=== PATIENT | male | born 1970 | race Caucasian/White ===

== ENCOUNTER 2018-07-10 10:40 | Inpatient (IN) | payer SELFPAY ==
[2018-07-10] VITALS (19 sets, daily range): BP systolic 95–125; BP diastolic 57–93; PULSE 74–125; RESP 12–32; TEMP 36.3–37; O2SAT 94–98; BMI 20.9; BMI 20.6
--- NOTE | 2018-07-10 11:04 | EKG12_ITS ---
Test Reason : SOB Blood Pressure : / mmHG Vent. Rate : 092 BPM Atrial Rate : 092 BPM P-R Int : 106 ms QRS Dur : 100 ms QT Int : 448 ms P-R-T Axes : 044 080 080 degrees QTc Int : 554 ms Sinus rhythm with short SD T wave abnormality, consider anterior ischemia Prolonged QT Abnormal ECG Confirmed by ELSA TERRAZAS, MENDEL ([id number]), makeup editor MITCH LINDO ([id number]) on 07/12/2018 11:03:34 AM Referred By: WON Confirmed By:MENDEL HUNTER MD
--- NOTE | 2018-07-10 11:04 | RAD_ITS ---
STUDY: X-RAY CHEST REASON FOR EXAM: Male, 47 years old. Shortness of breath TECHNIQUE: AP COMPARISON: 03/13/2016 FINDINGS: EKG leads project over the chest. The lungs are clear but hyper expanded. Nodular densities projecting over each mid lung field compatible with nipple shadows, similar. There is no demonstrated pleural abnormality. Normal size heart. Normal mediastinum and gena. Normal visualized pulmonary arteries. Normal visualized aortic arch and descending thoracic aorta. Normal visualized thoracic spine. Normal visualized ribs, clavicles, and shoulders. There is no demonstrated abnormality of the visualized soft tissue structures of the upper abdomen. RAD/Chest 1 View (Portable) IMPRESSION: 1. No airspace consolidation or pleural effusion. 2. Hyperinflation compatible with chronic obstructive airway disease. Electronically Signed: Darwin Christensen MD at 11:24 EDT , Service support ,
[2018-07-10] MEDS: Ipratropium/Albuterol Sulfate 3 ML AMPUL.NEB INHALATION ×2 (11:23→20:05)
--- NOTE | 2018-07-10 11:23 | ED.VISSUMM ---
- ER Visit Summary Date of Service: 07/10/18 Chief Complaint: Shortness of breath History of Present Illness: The patient is a 47 M who states that yesterday and evening he was drinking alcohol with the neighbor and had approximately 15 beers. He was feeling fine and went to bed. He woke in the middle the night coughing and short of breath with pain on his right back. States it hurts to take a breath he tells me he has a history of COPD but does not take any medications. He continues to smoke. Patient tells me that yesterday he felt fine and it was a pretty normal day. Tells me his back feels better when he brings his right leg up to his chest. No known trauma. Physical Examination: Blood pressure 110/81 heart rate of 125 respirations are 31 pulse ox 96% on room air temperature 97.8. Gen: Well-nourished well-developed strong smell of alcohol from patient patient is writhing on the bed Head: Normocephalic atraumatic Eyes: Perrl EOMI ENT: TMs clear no rhinorrhea moist mucous membranes Neck: Supple no lymphadenopathy no JVD nontender CVS: Regular rate tachycardic rhythm no murmurs normal S1-S2 Respiratory: Moderate respiratory distress. Bilateral expiratory wheeze. Right lower rhonchi. Chest nontender Abdomen: Soft nontender nondistended normal bowel sounds no masses Back: Nontender Extremity: Nontender no edema Skin: Normal color no rash Neuro: alert orientated ?3 CN II-XII intact normal strength sensation reflexes gait cerebellar Psych: Normal affect normal mood Test Results: White count is normal. CMP normal except for sodium of 130. Troponin is negative. Lactic acid elevated 4.3. EKG sinus at a rate of 92. Chest x-ray negative. CT Manisha of the chest no pulmonary embolism noted. Emergency Department Course and Treatment: I believe this episode is most likely due to aspiration during the middle the night. This is resulted in aspiration pneumonitis and flare of his COPD. He was given him aerosols morphine Solu-Medrol he is improving still has a lot of pain on the right side which I suspect is due to the strain from coughing and breathing. I think he would benefit from inpatient admission and further care. Impression: 1. Aspiration pneumonitis 2. COPD exacerbation 3. Chest wall strain This note was generated with [employer] dictation software. It may contain incorrect words, spelling, and punctuation that were not noted in review of the chart prior to signing ED Disposition - Plan for ED Patient: Referrals: Care Physician,No Primary [Primary Care Provider] -
[2018-07-10] MEDS: Ondansetron 4 MG/2 ML Vial IV (11:28)
[2018-07-10] MEDS: Morphine 4 MG/ML Syringe IV ×3 (11:28→17:44)
[2018-07-10] MEDS: 0.9% Normal Saline 1,000 ML 1000 ML IV (11:28)
[2018-07-10 11:35] LABS: Absolute Lymphocyte Count 2.07 X10^3/ul (0.83-4.51); Absolute Neutrophil Count 4.8 X10^3/uL (2.0-7.7); Basophil# 0.15 X10^3/uL; Basophil% 1.9 % (0-1); Eosinophil# 0.02 X10^3/uL; Eosinophils% 0.3 % (0-5); Hematocrit 42.7 % (40-54); Hemoglobin 15.3 g/dl (13.0-16.5); Lymphocyte # 2.07 X10^3/ul (4.0); Lymphocyte % 26.5 % (19-41); Mean Corp Hgb Conc 35.8 g/gl (32-36); Mean Corpuscular Hgb 31.1 pg (27.0-32.0); Mean Corpuscular Volume 86.8 fL (80-94); Mean Platelet Vol. 9.8 fl (6.2-12.0); Monocyte# 0.79 X10^3/uL; Monocyte% 10.1 % (0-10); Neutrophil # 4.78 X10^3/uL (2.7-7.7); Neutrophil % 61.2 % (47-70); Platelet Count 222 K/mm3 (150-450); RBC Distribution Width CV 13.7 % (11.6-14.6); RBC Distribution Width SD 42.6 fl (35.1-43.9); Red Blood Count 4.92 M/mm3 (4.6-6.2); White Blood Count 7.8 K/mm3 (4.4-11.0)
[2018-07-10 11:39] LABS: POSITIVE COUNT NO; POSITIVE DIFFERENTIAL NO; POSITIVE MORPHOLOGY NO
[2018-07-10 11:57] LABS: ALB/GLOB Ratio 1.1 RATIO (0.9-2.4); AST(SGOT) 34 U/L (15-37); Alanine Aminotransfer ALT/SGPT 29 U/L (16-61); Albumin, Serum 3.9 g/dL (3.2-5.0); Alkaline Phosphatase 82 U/L (45-117); Anion Gap 13 (5-15); BUN 4 mg/dL (7-18); Calcium,Total 8.5 mg/dL (8.5-10.1); Chloride 96 mmol/L (98-107); Creatinine, Serum 0.79 mg/dL (0.70-1.30); EST Glomerular Filtration Rate 110 mL/min (>60); Est Glom Filt Rate - Afr Amer 133 mL/min (>60); Estimated Creatinine Clearance 108.85 ml/min; Globulin 3.7 g/dL (2.2-4.2); Glucose 98 mg/dL (74-106); Lipase 102 U/L (73-393); Potassium 3.8 mmol/L (3.5-5.1); Protein, Total 7.6 g/dL (6.4-8.2); Sodium Level 130 mmol/L (136-145)
[2018-07-10 12:03] LABS: International Normalized Ratio 0.9; Partial Thromboplast Time 28.3 Seconds (24.1-36.2); Prothrombin Time (Protime)PT. 12.2 SECONDS (11.7-14.9)
[2018-07-10 12:06] LABS: Bacteria 0 SEEN /hpf (None Seen); Mucous, Urine 0 SEEN /hpf (<or=2+); Red Blood Cells-Urine 0 SEEN /hpf (0-5); Squamous Epithelial Cells - UA 0 SEEN /hpf (0-5); White Blood Cells 0 SEEN /hpf (0-5)
--- NOTE | 2018-07-10 12:07 | CT_ITS ---
STUDY: CTA CHEST REASON FOR EXAM: Male, 47 years old. Right lower chest pain RADIATION DOSAGE (If Supplied By Facility): CTDIvol = ( 5.67 ) mGy, DLP = ( 218.07 ) mGycm TECHNIQUE: The examination was performed with the intravenous administration of 100mL IV Isovue 300. Post-processing of the angiographic images was performed, with multiplanar reformation and 3D reconstruction. Individualized dose optimization techniques were used for this CT. COMPARISON: None. FINDINGS: Normal enhancement of the main pulmonary artery and right and left pulmonary arteries. Normal enhancement of the bilateral peripheral pulmonary arteries. Limited by motion artifact. There is no demonstrated pulmonary embolism. Normal thoracic aorta and visualized great vessels. There is no demonstrated aortic dissection. Normal heart and pericardium. Normal mediastinum. Normal hilar regions. Normal visualized trachea and bronchi. The lungs are hyper expanded, with flattening of the hemidiaphragms. There are paraseptal emphysematous blebs with mild bilateral pleural apical scarring. No airspace consolidation. There are calcified granulomata in the bilateral lower lobes. No pleural effusion. Normal chest wall structures. Normal osseous structures. There is diffuse fatty infiltration of the liver. CT/CTA Chest W/WO Contrast IMPRESSION: 1. No central or obvious segmental pulmonary embolism. Exam quality diminished by patient motion artifact. 2. Hyperinflation with mild paraseptal blebs. 3. Hepatic steatosis. Electronically Signed: Darwin Christensen MD at 12:46 EDT , Service support ,
[2018-07-10 12:08] LABS: Color, Urine Yellow (Yellow); Glucose, Dipstick Normal (Normal); Ketone-Dipstick Negative (Negative); Leukocyte Esterase-Dipstick 25 /ul (Negative); Nitrite-Dipstick Negative (Negative); Occult Blood-Urine Negative /ul (Negative); Protein-Dipstick Negative (Negative); Urine Bilirubin Dipstick Negative (Negative); Urine Clarity Clear (Clear); Urine Urobilinogen Normal (Normal)
[2018-07-10 12:11] LABS: Lactic Acid 4.3 mmol/L (0.4-2.0)
[2018-07-10] MEDS: Albuterol 2.5 MG/3 ML VIAL.NEB. INHALATION ×2 (12:40→13:02)
[2018-07-10] MEDS: 0.9% Normal Saline 1,000 ML 250 ML IV (12:44)
[2018-07-10] MEDS: Ketorolac 30 MG/ML Syringe IV (13:14)
[2018-07-10] MEDS: MethylPREDNISolone 125 MG/2 ML Vial IV (13:20)
--- NOTE | 2018-07-10 13:24 | HP.PCM_ITS ---
Problem List (1) Acute back pain Status: Acute Qualifiers: Back pain location: low back pain Back pain laterality: unspecified Sciatica laterality: bilateral sciatica (2) Hypoxia Status: Acute (3) Aspiration pneumonitis Status: Acute (4) COPD exacerbation Status: Chronic (5) Alcohol use disorder Status: Acute (6) Nicotine dependence Status: Acute Qualifiers: Substance use status: unspecified nicotine-induced disorder History of Present Illness Date of Admission: 07/10/18 Chief Complaint: Shortness of breath - 1day The patient is a 47 year old M with past medical history of chronic alcohol use disorder, nicotine use disorder, presumable COPD who comes in with complaints of upper respiratory symptoms ongoing for about 1 week and shortness of breath worsening on the day of admission. Patient reports that he had an upper respiratory symptoms for which she was taking DayQuil and NyQuil with no improvement in his symptoms. He came to the hospital today because he had progressive worsening of his shortness of breath. He admits to wheezing. He smokes more than 3 packs of cigarettes a day. He drinks more than 12 packs of beer a day. In addition to the shortness of breath, he complains of severe acute right-sided low back pain that is worse with ambulation, worse when he takes a deep breath. Pain is very severe, does not radiate down his legs. No associated incontinence of urine or stool. No tingling or numbness. Vitals in the emergency department show temperature of 97.8F, heart rate is 104, blood pressure was 110/81, respiratory rate was 32, SPO2 is 97% on room air. His admitting CBC D was unremarkable. INR PTT was also unremarkable. Sodium was 130, potassium 3.8, bicarbonate 21 BUN 4, creatinine 0.79. Lactic acid was elevated at 4.3. LFTs were normal. UA was unremarkable. EKG showed normal sinus rhythm, no acute ST changes. Admitting chest x-ray showed no airspace consolidation or pleural effusion. Showed hyperinflation compatible with chronic COPD. CT of the chest which was negative for PE. Showed hepatic steatosis. Past Medical History Past Medical History (Chronic Problems): Chronic Problems COPD exacerbation (Chronic) Allergies Penicillins [PCN] Allergy (Verified 07/10/18 10:45) Hives Home Medications: Ambulatory Orders Medication Instructions Recorded NK 07/10/18 Surgical History: no surgical history Psychiatric History: No pertinent psych hx Lives: Spouse/ Significant Other Smoking Status: Current every day smoker Tobacco Use: Cigarettes Alcohol: Heavy Drugs: None - *Family History Maternal History Items: Cancer - Leukemia Paternal History Items: Diabetes Review of Systems Constitutional: Reports: Weakness. Denies: Anorexia, Chills, Fever, Weight Change Eyes: Denies: Blurred vision, Cataracts, Conjunctivae Inflammation, Double vision HEENT: Denies: Difficulty Hearing, Difficulty Swallowing, Head Aches, Hearing Changes, Sinus Congestion, Sinus Drainage Cardiovascular: Denies: Chest Pain, Claudication, Orthopnea, Palpitations Respiratory: Reports: Shortness of breath at rest, Shortness of breath upon exertion, Wheezing. Denies: Cough, Hemoptysis, Sputum production Gastrointestinal: Denies: Abdominal Pain, Constipation, Hematemesis, Hematochezia, Nausea, Vomiting Genitourinary: Denies: Dysuria Musculoskeletal: Reports: - - Low back pain Skin: Denies: Rash, Wounds Neurological: Denies: Numbness, Tingling, Focal weakness Psychiatric: Denies: Anxiety, Depression, Homicidal Ideations, Suicidal Ideations Hematologic/ Lymphatic: Denies: Easy Bruising, Easy Bleeding VTE Information - Inpt Only VTE Present on Admission: No VTE Pharm Prophylaxis ordered?: Yes Patient Problems: Active and Suspected Problems Acute back pain (Acute) Hypoxia (Acute) Aspiration pneumonitis (Acute) Alcohol use disorder (Acute) Nicotine dependence (Acute) - Physical Exam General: Alert, Oriented x3, Cooperative, - - Severe pain with pain located in his back, not on oxygen HEENT: Atraumatic, PERRLA, EOMI, Normocephalic Oral: Moist Mucosa Neck: Supple, No JVD, Negative Carotid Bruits Lungs: Normal air movement, Diminished Cardiovascular: Regular rate, Regular Rhythm, Normal S1, Normal S2, No murmurs Abdomen: Bowel Sounds Present, Soft, Non Tender, Non-Distended, No Hepato- splenomegaly Extremities: No edema Skin: No rashes, No breakdown Musculoskeletal: No Tenderness to Palpation of Joints or Extremities Lymphatic: No Cervical, Supraclavicular, or Inguinal Adenopathy Neurological: Cranial nerves II-XII grossly intact, Neuro grossly intact Psych/Mental Status: Normal Affect, Appropriate Vital Signs Temp Pulse Resp BP Pulse Ox 98.5 F 94 21 H 115/78 95 07/10/18 13:00 07/10/18 13:04 07/10/18 13:04 07/10/18 13:00 07/10/18 13:00 Oxygen Flow Rate (L/min) 2 Oxygen Delivery Method Room Air Weight: 68.039 kg Body Mass Index (BMI) 20.9 Laboratory Tests Past 24 Hrs 07/10/18 07/10/18 07/10/18 11:21 11:21 11:21 WBC 7.8 RBC 4.92 Hgb 15.3 Hct 42.7 MCV 86.8 MCH 31.1 MCHC 35.8 RDW 13.7 RDW Differential 42.6 Plt Count 222 MPV 9.8 Immature Gran % (Auto) 0.000 Neut % (Auto) 61.2 Lymph % (Auto) 26.5 [place] % (Auto) 10.1 H Eos % (Auto) 0.3 Baso % (Auto) 1.9 H Absolute Neuts (auto) 4.8 Absolute Lymphs (auto) 2.07 Total Counted Not Reportable PT 12.2 INR 0.9 APTT 28.3 Sodium 130 L Potassium 3.8 Chloride 96 L Carbon Dioxide 21.0 Anion Gap 13 BUN 4 L Creatinine 0.79 Estim Creat Clear Calc 108.85 Est GFR (MDRD) Af Amer 133 Est GFR (MDRD) Non-Af 110 BUN/Creatinine Ratio 5.0 L Glucose 98 Lactic Acid Calcium 8.5 Total Bilirubin 0.30 AST 34 ALT 29 Alkaline Phosphatase 82 Troponin I < 0.015 Total Protein 7.6 Albumin 3.9 Globulin 3.7 Albumin/Globulin Ratio 1.1 Lipase 102 Urine Color Urine Clarity Urine pH Ur Specific [place] Urine Protein Urine Glucose (UA) Urine Ketones Urine Occult Blood Urine Nitrite Urine Bilirubin Urine Urobilinogen Ur Leukocyte Esterase Urine RBC Urine WBC Ur Squamous Epith Cells Urine Bacteria Urine Mucus 07/10/18 07/10/18 11:21 12:01 WBC RBC Hgb Hct MCV MCH MCHC RDW RDW Differential Plt Count MPV Immature Gran % (Auto) Neut % (Auto) Lymph % (Auto) [place] % (Auto) Eos % (Auto) Baso % (Auto) Absolute Neuts (auto) Absolute Lymphs (auto) Total Counted PT INR APTT Sodium Potassium Chloride Carbon Dioxide Anion Gap BUN Creatinine Estim Creat Clear Calc Est GFR (MDRD) Af Amer Est GFR (MDRD) Non-Af BUN/Creatinine Ratio Glucose Lactic Acid 4.3 H* Calcium Total Bilirubin AST ALT Alkaline Phosphatase Troponin I Total Protein Albumin Globulin Albumin/Globulin Ratio Lipase Urine Color Yellow Urine Clarity Clear Urine pH 7.0 Ur Specific [place] 1.010 Urine Protein Negative Urine Glucose (UA) Normal Urine Ketones Negative Urine Occult Blood Negative Urine Nitrite Negative Urine Bilirubin Negative Urine Urobilinogen Normal Ur Leukocyte Esterase 25 H Urine RBC 0 SEEN Urine WBC 0 SEEN Ur Squamous Epith Cells 0 SEEN Urine Bacteria 0 SEEN Urine Mucus 0 SEEN Assessment/Plan All Active Problems Acute back pain (Acute) Hypoxia (Acute) Aspiration pneumonitis (Acute) Alcohol use disorder (Acute) Nicotine dependence (Acute) 47 year old M with past medical history of chronic alcohol use disorder, nicotine use disorder, presumable COPD who comes in with complaints of upper respiratory symptoms ongoing for about 1 week and shortness of breath worsening on the day of admission. He also complained of 1 day history of severe low back pain. Patient was found to be hypoxic, improved with breathing treatments. 1. Acute low back pain, likely musculoskeletal, worsening with cough spots, lumbar spine x-rays pending, pain appears uncontrolled Plan: Admit for pain control, IV Toradol, Tylenol scheduled, would avoid use of narcotics, may use Lidoderm patches if needed, PT and OT to evaluate and treat 2. Acute respiratory insufficiency likely secondary to acute COPD exacerbation, aspiration pneumonitis, patient was off oxygen at the time of admission Initially was on 2 L of oxygen in the emergency department, continue on breathing treatments, IV steroids, we will not start on antibiotics 3. Acute COPD exacerbation, no wheezes at time of exam, received breathing treatment early on in the emergency department, will get respiratory panel, continue with IV steroids and breathing treatment 4. Nicotine use disorder, will put on replacement 5. Chronic nicotine use disorder, heavy, patient admits to no history of withdrawals, he says he can go for days without alcohol Will put on alcohol withdrawal protocol. 6. Hyponatremia secondary to dehydration/alcohol use, trend labs in a.m. 7. DVT prophylaxis with early ambulation Code Visit Inpatient E&M: 31407 Init Hosp L3
--- NOTE | 2018-07-10 13:43 | RAD_ITS ---
STUDY: X-RAY - LUMBAR SPINE REASON FOR EXAM: Male, 47 years old. Severe low back pain TECHNIQUE: 2 view(s) of the lumbar spine were obtained. COMPARISON: None FINDINGS: Normal lumbar lordosis. There is no substantial scoliosis. There is a normal alignment of the vertebrae. There is multilevel endplate spondylosis of the lumbar vertebrae. Mild disc space narrowing at L5-S1 and L4-L5. There is no demonstrated fracture. There is gaseous distention of small bowel and colon. RAD/Lumbar Spine 2 or 3 Views IMPRESSION: 1. No compression fracture. 2. Gaseous distention of the small bowel and colon but no frankly dilated loops of small bowel. 3. Mild degenerative changes. Electronically Signed: Darwin Christensen MD at 14:26 EDT , Service support ,
[2018-07-10] MEDS: LORazepam 1 MG Tablet 2 MG PO (15:20)
[2018-07-10] MEDS: Acetaminophen 500 MG Tablet 1000 MG PO ×2 (15:20→22:47)
[2018-07-10 15:29] LABS: Reflex Lactate? Y
[2018-07-10 16:31] LABS: Lactic Acid 5.3 mmol/L (0.4-2.0)
[2018-07-10] MEDS: 0.9% NaCl Peripheral Flush Adult/Peds IV ×2 (17:15→17:44)
[2018-07-10] MEDS: LORazepam 2 MG/ML Syringe IV (17:15)
[2018-07-10] MEDS: proCHLORPERazine 10 MG/2 ML Vial 5 MG IV (17:44)
[2018-07-10] MEDS: 0.9% Normal Saline 1,000 ML 75 ML IV (17:44)
--- NOTE | 2018-07-10 17:55 | NURSING ---
PT POINTING OUT TOWARDS WINDOW STATES 'LOOK AT THAT MODESTO OVER THERE. INQUIRED TO WHAT PT IS SEEING PT REPORTS THERE IS A MODESTO OVER THERE STANDING ON THAT CLOUD. SEE THE COLOR COMING DOWN OUT OF IT. PT UNABLE TO DESCRIBE COLOR OF WHAT HE SEES IS COMING DOWN FROM THE CLOUD. INQUIRED IF PT THINKS THE MAN STANDING ON THE CLOUD IS REAL. PT STARTS TO LAUGH AND SAYS 'I DON'T KNOW, NO I GUESS NOT. IF I KEEP THIS UP, THEY ARE GOING TO MOVE ME TO THE TOP FLOOR TO THE CRA[place]Y [place]. ENCOURAGED PT TO REPORT ANY FURTHER UNUSUAL VISUAL IMAGES. SPOUSE AT BEDSIDE WITH PT WELL DURING THIS TIME.
[2018-07-10] MEDS: traZODone 50 MG Tablet PO (22:47)
[2018-07-11 02:00] VITALS: PULSE 91
[2018-07-11] MEDS: Ketorolac 30 MG/ML Syringe IV (02:58)
[2018-07-11 03:00] VITALS: BP 116/69; PULSE 87; RESP 16; TEMP 36.6; O2SAT 94
[2018-07-11 06:08] LABS: Anion Gap 6 (5-15); BUN 7 mg/dL (7-18); BUN/Creat Ratio 10.4 RATIO (10-20); Calcium,Total 8.2 mg/dL (8.5-10.1); Chloride 106 mmol/L (98-107); Creatinine, Serum 0.68 mg/dL (0.70-1.30); EST Glomerular Filtration Rate 133 mL/min (>60); Est Glom Filt Rate - Afr Amer 160 mL/min (>60); Estimated Creatinine Clearance 124.53 ml/min; Glucose 193 mg/dL (74-106); Sodium Level 138 mmol/L (136-145)
[2018-07-11] MEDS: Acetaminophen 500 MG Tablet 1000 MG PO (06:17)
[2018-07-11 06:22] LABS: Absolute Lymphocyte Count 0.33 X10^3/ul (0.83-4.51); Absolute Neutrophil Count 7.2 X10^3/uL (2.0-7.7); Hematocrit 38.2 % (40-54); Hemoglobin 13.3 g/dl (13.0-16.5); Lymphocyte # 0.33 X10^3/ul (4.0); Lymphocyte % 4.3 % (19-41); Mean Corp Hgb Conc 34.8 g/gl (32-36); Mean Corpuscular Hgb 31.4 pg (27.0-32.0); Mean Corpuscular Volume 90.1 fL (80-94); Mean Platelet Vol. 10.7 fl (6.2-12.0); Monocyte# 0.19 X10^3/uL; Monocyte% 2.5 % (0-10); Neutrophil # 7.19 X10^3/uL (2.7-7.7); Neutrophil % 93.1 % (47-70); Platelet Count 188 K/mm3 (150-450); RBC Distribution Width CV 14.1 % (11.6-14.6); RBC Distribution Width SD 45.1 fl (35.1-43.9); Red Blood Count 4.24 M/mm3 (4.6-6.2); White Blood Count 7.7 K/mm3 (4.4-11.0)
[2018-07-11 06:23] LABS: Differential Indicated SCAN CRITERIA MET; POSITIVE COUNT NO; POSITIVE DIFFERENTIAL YES; POSITIVE MORPHOLOGY NO
[2018-07-11] MEDS: Ipratropium/Albuterol Sulfate 3 ML AMPUL.NEB INHALATION (07:41)
[2018-07-11 07:42] VITALS: PULSE 88; RESP 16; O2SAT 94
[2018-07-11] MEDS: Folic Acid 1 MG Tablet PO (07:57)
[2018-07-11] MEDS: Multivitamins,Ther W-Minerals Tablet 1 TABLET PO (07:57)
[2018-07-11] MEDS: Thiamine Hydrochloride 100 MG Tablet PO (07:57)
[2018-07-11] MEDS: Lidocaine 5% Patch 1 PATCH TOPICAL (07:58)
[2018-07-11 08:05] LABS: Lactic Acid 1.2 mmol/L (0.4-2.0)
--- NOTE | 2018-07-11 09:25 | PCM.DC ---
- Discharge Diagnoses Current Active Problems: Current Active and Chronic Problems Acute back pain (Acute) Hypoxia (Acute) Aspiration pneumonitis (Acute) COPD exacerbation (Chronic) Alcohol use disorder (Acute) Nicotine dependence (Acute) Reason(s) for Visit for Discharge Instructions: Fever, shortness of breath You will use the following diet at home:: Regular Your food should be the consistency of: Regular Your liquids should be the consistency of: Regular/Thin Discharge Activity: Return to Normal Activity Weight Bearing Status: Weight bearing as tolerated Additional Instructions: Continue to use your inhaler as needed for SOB. Continue to use tylenol, ibuprofen, lidoderm patches, topical medications such as Bengay, massages for your right low back pain as discussed with you. Follow up with gift packer for lung function testing. Allergies/Adverse Reactions: Allergies Penicillins [PCN] Allergy (Verified 07/10/18 10:45) Hives Medications to take at Discharge Acetaminophen [Tylenol] 1,000 mg PO Q8 tablet 07/11/18 Ipratropium/Albuterol Respimat [Combivent Respimat Inhal [place]] 1 puff INHALATION 4X/DAY PRN #1 inhaler 07/11/18 Lidocaine [Lidoderm Patch] 1 patch TOPICAL DAILY #10 patch 07/11/18 Nicotine [Nicoderm Cq] 21 mg TRANSDERM. DAILY #30 patch 07/11/18 Prednisone 10 mg PO DAILY #30 tab 07/11/18 The following prescriptions were given: Lidocaine [Lidoderm Patch] 1 patch TOPICAL DAILY #10 patch Nicotine [Nicoderm Cq] 21 mg TRANSDERM. DAILY #30 patch Prednisone 10 mg PO DAILY #30 tab Ipratropium/Albuterol Respimat [Combivent Respimat Inhal Lizella] 1 puff INHALATION 4X/DAY PRN #1 inhaler PRN Reason: Sob &/Or Wheezing Primary Care Physician: Care Physician,No Primary [Primary Care Provider] - Please follow up with your Primary Care Physician in: within 1-2 weeks Test Results: Test results from this visit will be discussed in further detail at your follow-up appointment, if applicable. Please Follow Up With: Dipak De Leon MD When: within 2-4 weeks for lung function testing Proposed Discharge Date: 07/11/18
[2018-07-11 09:26] VITALS: BP 130/65; PULSE 103; RESP 18; TEMP 36.5; O2SAT 98
--- NOTE | 2018-07-11 09:29 | DCINST_ITS ---
- Discharge Diagnoses Current Active Problems: Current Active and Chronic Problems Acute back pain (Acute) Hypoxia (Acute) Aspiration pneumonitis (Acute) COPD exacerbation (Chronic) Alcohol use disorder (Acute) Nicotine dependence (Acute) Reason(s) for Visit for Discharge Instructions: Fever, shortness of breath You will use the following diet at home:: Regular Your food should be the consistency of: Regular Your liquids should be the consistency of: Regular/Thin Discharge Activity: Return to Normal Activity Weight Bearing Status: Weight bearing as tolerated Additional Instructions: Continue to use your inhaler as needed for SOB. Continue to use tylenol, ibuprofen, lidoderm patches, topical medications such as Bengay, massages for your right low back pain as discussed with you. Follow up with apprentice technician for lung function testing. Allergies/Adverse Reactions: Allergies Penicillins [PCN] Allergy (Verified 07/10/18 10:45) Hives Medications to take at Discharge Acetaminophen [Tylenol] 1,000 mg PO Q8 tablet 07/11/18 Ipratropium/Albuterol Respimat [Combivent Respimat Inhal [place]] 1 puff INHALATION 4X/DAY PRN #1 inhaler 07/11/18 Lidocaine [Lidoderm Patch] 1 patch TOPICAL DAILY #10 patch 07/11/18 Nicotine [Nicoderm Cq] 21 mg TRANSDERM. DAILY #30 patch 07/11/18 Prednisone 10 mg PO DAILY #30 tab 07/11/18 The following prescriptions were given: Lidocaine [Lidoderm Patch] 1 patch TOPICAL DAILY #10 patch Nicotine [Nicoderm Cq] 21 mg TRANSDERM. DAILY #30 patch Prednisone 10 mg PO DAILY #30 tab Ipratropium/Albuterol Respimat [Combivent Respimat Inhal [place]] 1 puff INHALATION 4X/DAY PRN #1 inhaler PRN Reason: Sob &/Or Wheezing Primary Care Physician: Care Physician,No Primary [Primary Care Provider] - Please follow up with your Primary Care Physician in: within 1-2 weeks Test Results: Test results from this visit will be discussed in further detail at your follow- up appointment, if applicable. Please Follow Up With: Dipak De Leon MD When: within 2-4 weeks for lung function testing Proposed Discharge Date: 07/11/18
--- NOTE | 2018-07-11 09:30 | DS.PCM_ITS ---
Discharge Date and Diagnosis Date of Admission: 07/10/18 Date of Discharge: 07/11/18 - Primary Discharge Diagnosis Active and Suspected Problems Acute back pain (Acute) Hypoxia (Acute) Aspiration pneumonitis (Acute) Alcohol use disorder (Acute) Nicotine dependence (Acute) Elevated lactic acid, POA - Secondary Discharge Diagnosis Chronic Problems COPD exacerbation (Chronic) Hospital Course and Treatment Imaging Results: Clinical Impression(s) from Imaging Studies Chest X-Ray 07/10/18 11:04 IMPRESSION: 1. No airspace consolidation or pleural effusion. 2. Hyperinflation compatible with chronic obstructive airway disease. Electronically Signed: Darwin Christensen MD at 11:24 EDT , Service support , Chest CTA 07/10/18 12:07 IMPRESSION: 1. No central or obvious segmental pulmonary embolism. Exam quality diminished by patient motion artifact. 2. Hyperinflation with mild paraseptal blebs. 3. Hepatic steatosis. Electronically Signed: Darwin Christensen MD at 12:46 EDT , Service support , Lumbar Spine X-Ray 07/10/18 13:43 IMPRESSION: 1. No compression fracture. 2. Gaseous distention of the small bowel and colon but no frankly dilated loops of small bowel. 3. Mild degenerative changes. Electronically Signed: Darwin Christensen MD at 14:26 EDT , Service support , None Operations: None Procedures: None Summary of Care Provided: 47 year old M with past medical history of chronic alcohol use disorder, nicotine use disorder, presumable COPD who comes in with complaints of upper respiratory symptoms ongoing for about 1 week and shortness of breath worsening on the day of admission. He also complained of 1 day history of severe low back pain. Patient was found to be hypoxic, improved with breathing treatments. Patient is admitting chest x-ray was negative for any acute abnormality. Respiratory panel was negative. Patient had severe low back pain. X-ray of the lumbar spine was negative for any acute finding. Minimal degenerative changes seen. Patient was managed symptomatically on the medical floor. He was found to have elevated lac tic acid of 4.6, this was likely secondary to hypoxia, this trended up to 5.3 and normal the next day. There was no signs of sepsis. Patient improved at the time of admission, was off oxygen, he continued to remain off oxygen. He did not qualify for home oxygen. He was advised to stop smoking and drinking. He was discharged home home on a prednisone taper, Combivent, scheduled Tylenol, ibuprofen as needed, Lidoderm patches, and asked to manage backpain conservatively. Follow-up with warehouse order selector in 2-4 weeks, primary care doctor also within 1-2 weeks Subjective: On the day of discharge, patient appears much improved, noting pain. Denied any fever or chills. Objective: Physical Exam General: Alert, Oriented x3, Cooperative, - - Severe pain with pain located in his back, not on oxygen HEENT: Atraumatic, PERRLA, EOMI, Normocephalic Oral: Moist Mucosa Neck: Supple, No JVD, Negative Carotid Bruits Lungs: Normal air movement, Diminished Cardiovascular: Regular rate, Regular Rhythm, Normal S1, Normal S2, No murmurs Abdomen: Bowel Sounds Present, Soft, Non Tender, Non-Distended, No Hepato- splenomegaly Extremities: No edema Skin: No rashes, No breakdown Musculoskeletal: No Tenderness to Palpation of Joints or Extremities Lymphatic: No Cervical, Supraclavicular, or Inguinal Adenopathy Neurological: Cranial nerves II-XII grossly intact, Neuro grossly intact Psych/Mental Status: Normal Affect, Appropriate - Physical Exam Vital Signs Temp Pulse Resp BP Pulse Ox 97.7 F L 103 H 18 130/65 H 98 07/11/18 09:26 07/11/18 09:26 07/11/18 09:26 07/11/18 09:26 07/11/18 09:26 Oxygen Flow Rate (L/min) 2 Oxygen Delivery Method Room Air Weight: 67 kg Body Mass Index (BMI) 20.6 Intake and Output for Last 24 Hours 07/09/18 07/10/18 07/11/18 23:59 23:59 23:59 Intake Total 240 / 240 1509 / 1509 Output Total 400 / 400 400 / 400 Balance -160 / -160 1109 / 1109 Microbiology Past 72 Hours 07/10/18 14:50 Respiratory Panel (PCR) - Final Mucosa - Nasopharyngeal Laboratory Tests Past 24 Hrs 07/10/18 07/10/18 07/10/18 11:21 11:21 11:21 WBC 7.8 RBC 4.92 Hgb 15.3 Hct 42.7 MCV 86.8 MCH 31.1 MCHC 35.8 RDW 13.7 RDW Differential 42.6 Plt Count 222 MPV 9.8 Immature Gran % (Auto) 0.000 Neut % (Auto) 61.2 Lymph % (Auto) 26.5 Long % (Auto) 10.1 H Eos % (Auto) 0.3 Baso % (Auto) 1.9 H Absolute Neuts (auto) 4.8 Absolute Lymphs (auto) 2.07 Total Counted Not Reportable Differential Comment PT 12.2 INR 0.9 APTT 28.3 Sodium 130 L Potassium 3.8 Chloride 96 L Carbon Dioxide 21.0 Anion Gap 13 BUN 4 L Creatinine 0.79 Estim Creat Clear Calc 108.85 Est GFR (MDRD) Af Amer 133 Est GFR (MDRD) Non-Af 110 BUN/Creatinine Ratio 5.0 L Glucose 98 Lactic Acid Calcium 8.5 Total Bilirubin 0.30 AST 34 ALT 29 Alkaline Phosphatase 82 Troponin I < 0.015 Total Protein 7.6 Albumin 3.9 Globulin 3.7 Albumin/Globulin Ratio 1.1 Lipase 102 Urine Color Urine Clarity Urine pH Ur Specific [place] Urine Protein Urine Glucose (UA) Urine Ketones Urine Occult Blood Urine Nitrite Urine Bilirubin Urine Urobilinogen Ur Leukocyte Esterase Urine RBC Urine WBC Ur Squamous Epith Cells Urine Bacteria Urine Mucus Ethyl Alcohol 07/10/18 07/10/18 07/10/18 11:21 11:21 12:01 WBC RBC Hgb Hct MCV MCH MCHC RDW RDW Differential Plt Count MPV Immature Gran % (Auto) Neut % (Auto) Lymph % (Auto) Long % (Auto) Eos % (Auto) Baso % (Auto) Absolute Neuts (auto) Absolute Lymphs (auto) Total Counted Differential Comment PT INR APTT Sodium Potassium Chloride Carbon Dioxide Anion Gap BUN Creatinine Estim Creat Clear Calc Est GFR (MDRD) Af Amer Est GFR (MDRD) Non-Af BUN/Creatinine Ratio Glucose Lactic Acid 4.3 H* Calcium Total Bilirubin AST ALT Alkaline Phosphatase Troponin I Total Protein Albumin Globulin Albumin/Globulin Ratio Lipase Urine Color Yellow Urine Clarity Clear Urine pH 7.0 Ur Specific [place] 1.010 Urine Protein Negative Urine Glucose (UA) Normal Urine Ketones Negative Urine Occult Blood Negative Urine Nitrite Negative Urine Bilirubin Negative Urine Urobilinogen Normal Ur Leukocyte Esterase 25 H Urine RBC 0 SEEN Urine WBC 0 SEEN Ur Squamous Epith Cells 0 SEEN Urine Bacteria 0 SEEN Urine Mucus 0 SEEN Ethyl Alcohol 167.0 07/10/18 07/11/18 07/11/18 15:50 05:30 05:30 WBC 7.7 RBC 4.24 L Hgb 13.3 Hct 38.2 L MCV 90.1 MCH 31.4 MCHC 34.8 RDW 14.1 RDW Differential 45.1 H Plt Count 188 MPV 10.7 Immature Gran % (Auto) 0.100 Neut % (Auto) 93.1 H Lymph % (Auto) 4.3 L Long % (Auto) 2.5 Eos % (Auto) 0.0 Baso % (Auto) 0.0 Absolute Neuts (auto) 7.2 Absolute Lymphs (auto) 0.33 L Total Counted Not Reportable Differential Comment PT INR APTT Sodium 138 Potassium 4.0 Chloride 106 Carbon Dioxide 26.0 Anion Gap 6 BUN 7 Creatinine 0.68 L Estim Creat Clear Calc 124.53 Est GFR (MDRD) Af Amer 160 Est GFR (MDRD) Non-Af 133 BUN/Creatinine Ratio 10.4 Glucose 193 H Lactic Acid 5.3 H* Calcium 8.2 L Total Bilirubin AST ALT Alkaline Phosphatase Troponin I Total Protein Albumin Globulin Albumin/Globulin Ratio Lipase Urine Color Urine Clarity Urine pH Ur Specific [place] Urine Protein Urine Glucose (UA) Urine Ketones Urine Occult Blood Urine Nitrite Urine Bilirubin Urine Urobilinogen Ur Leukocyte Esterase Urine RBC Urine WBC Ur Squamous Epith Cells Urine Bacteria Urine Mucus Ethyl Alcohol 07/11/18 07:28 WBC RBC Hgb Hct MCV MCH MCHC RDW RDW Differential Plt Count MPV Immature Gran % (Auto) Neut % (Auto) Lymph % (Auto) Long % (Auto) Eos % (Auto) Baso % (Auto) Absolute Neuts (auto) Absolute Lymphs (auto) Total Counted Differential Comment PT INR APTT Sodium Potassium Chloride Carbon Dioxide Anion Gap BUN Creatinine Estim Creat Clear Calc Est GFR (MDRD) Af Amer Est GFR (MDRD) Non-Af BUN/Creatinine Ratio Glucose Lactic Acid 1.2 Calcium Total Bilirubin AST ALT Alkaline Phosphatase Troponin I Total Protein Albumin Globulin Albumin/Globulin Ratio Lipase Urine Color Urine Clarity Urine pH Ur Specific [place] Urine Protein Urine Glucose (UA) Urine Ketones Urine Occult Blood Urine Nitrite Urine Bilirubin Urine Urobilinogen Ur Leukocyte Esterase Urine RBC Urine WBC Ur Squamous Epith Cells Urine Bacteria Urine Mucus Ethyl Alcohol Discharge Diet: Low fat/ Low Cholesterol, 2000 mg Sodium Diet Discharge Activity: Return to Normal Activity Weight Bearing Status: Weight bearing as tolerated Home Medications: Medications to take at Discharge Acetaminophen [Tylenol] 1,000 mg PO Q8 tablet 07/11/18 Ipratropium/Albuterol Respimat [Combivent Respimat Inhal [place]] 1 puff INHALATION 4X/DAY PRN #1 inhaler 07/11/18 Lidocaine [Lidoderm Patch] 1 patch TOPICAL DAILY #10 patch 07/11/18 Nicotine [Nicoderm Cq] 21 mg TRANSDERM. DAILY #30 patch 07/11/18 Prednisone 10 mg PO DAILY #30 tab 07/11/18 Following Prescrptions Were Given to Patient: Lidocaine [Lidoderm Patch] 1 patch TOPICAL DAILY #10 patch Nicotine [Nicoderm Cq] 21 mg TRANSDERM. DAILY #30 patch Prednisone 10 mg PO DAILY #30 tab Ipratropium/Albuterol Respimat [Combivent Respimat Inhal [place]] 1 puff INHALATION 4X/DAY PRN #1 inhaler PRN Reason: Sob &/Or Wheezing Primary Care Physician: Care Physician,No Primary [Primary Care Provider] - Please follow up with your Primary Care Physician in: within 1-2 weeks Please Follow Up With: Dipak De Leon MD When: within 2-4 weeks for lung function testing Disposition: Home Minutes spent on discharge:: 40 Patient Condition:: Stable Medical Necessity - Tobacco Use Smoking Status: Current every day smoker Tobacco Use: Cigarettes Meaningful Use Info Meaningful Use Diagnoses (Choose all that apply): None applicable Code Visit Inpatient E&M: 60714 Disch Hosp
--- NOTE | 2018-07-11 09:32 | PCA ---
Doctor Beaza wants dental secretary on Wednesday 07/12 to schedule an appointment for doctor Moises Quesada for 2 to 4 weeks and call him with the appointment time
[2018-07-11 09:34] VITALS: PULSE 88; O2SAT 97; O2SAT 98
== END 2018-07-11 10:41 | disposition home or self-care (01) | DRG 178 ==
LOC: ED 11:50 → MS3 13:38
PROVIDERS: Hospitalist; Admitting Provider Internal Medicine; Emergency Provider Emergency Medicine; Visit Provider Internal Medicine
DX: J69.0 Pneumonitis due to inhalation of food and vomit (principal); E87.1 Hypo-osmolality and hyponatremia; J44.1 Chronic obstructive pulmonary disease with (acute) exacerbation; E86.0 Dehydration; M54.5 Low back pain; F17.210 Nicotine dependence, cigarettes, uncomplicated; R09.02 Hypoxemia; Z72.89 Other problems related to lifestyle
CPT/HCPCS: 36415; 71045; 71275; 72100; 80048; 80053; 80320; 81001; 83605; 83690; 84484; 85025; 85610; 85730; 87040; 87633; 93005; 94640; 99284; 99406; J7030; Q9967; A4216; G0480; J2405

== ENCOUNTER 2018-07-12 14:26 | Emergency (ER) | payer SELFPAY ==
[2018-07-10 14:48] VITALS: BMI 20.6
[2018-07-12 14:29] VITALS: BP 137/86; PULSE 73; RESP 17; TEMP 36.7; O2SAT 96; BMI 21.7
--- NOTE | 2018-07-12 15:07 | RAD_ITS ---
STUDY: X-RAY CHEST REASON FOR EXAM: Male, 47 years old. Cough and shortness of breath. Chest pain. TECHNIQUE: PA and lateral views of the chest. COMPARISON: Comparison is made with prior study dated July 10, 2018. FINDINGS: EKG electrodes are seen. Hyperinflation. The lungs are clear. There is no demonstrated pleural abnormality. Normal size heart. Normal mediastinum and gena. Normal visualized pulmonary arteries. Normal visualized aortic arch and descending thoracic aorta. Normal visualized thoracic spine. Normal visualized ribs, clavicles, and shoulders. There is no demonstrated abnormality of the visualized soft tissue structures of the upper abdomen. RAD/Chest PA and Lateral IMPRESSION: Hyperinflation. Electronically Signed: Patrick Zabala, at 15:36 EDT , Service support ,
--- NOTE | 2018-07-12 15:24 | ED.DCSUM_ITS ---
- ER Visit Summary Date of Service: 07/12/18 Chief Complaint: Cough and right-sided back pain History of Present Illness: The patient is a 47 M with no primary care physician. He reports that he was admitted to the hospital 2 days ago after an episode of aspiration. He reports that he continues to have a cough is productive of white sputum without blood. He denies any fever or chills. Reports that he has been wheezing and is on Combivent. He states that he has a severe pain in the right mid back each time he coughs. Physical Examination: Vitals: Stable. Afebrile. General: Well-nourished and well-developed. Head: Normocephalic atraumatic. Neck: Supple, no lymphadenopathy. No JVD. Nontender. Cardiovascular: Regular rate and rhythm. No murmurs. Respiratory: No respiratory distress. Clear to auscultation bilaterally. Abdominal: Soft, nontender, nondistended, normal bowel sounds. No guarding, rebound, or peritoneal signs. Back: Moderate tenderness palpation over the right lower thoracic paraspinous musculature. No vertebral tenderness.. Extremities: Nontender, no edema. Skin: Normal color, no rash. Neurologic: Alert and oriented ?3. Cranial nerves II through XII are intact. Normal strength and sensation. Psych: Normal affect. Test Results: Chest x-ray shows chronic changes. Emergency Department Course and Treatment: An [facility] report was obtained which was negative. Patient is given a dose of Ragland here. Treatment Plan: Patient be discharged prescription for 10 Ragland. Instructed to follow-up with Dr. Reyes in 1 week if not improving. Return to the emergency department for any worsening symptoms. Disposition: To home in improved and stable condition. Impression: 1. COPD. 2. Muscular back pain. This note was generated with [employer] software. It may contain incorrect words, spelling, and punctuation that were not noted in review of the chart prior to signing ED Disposition - Plan for ED Patient: Disposition: Home or Assisted Living Instructions: ED COPD Flare Prescriptions: Hydrocodone Bitart/Apap 5-325 [Ragland 5MG-325MG] 1 tablet PO Q4H PRN PRN 2 Days #10 tablet PRN Reason: Pain Referrals: Ayala Singleton MD [STAFF PHYSICIAN] - 1 Week if not improving
[2018-07-12] MEDS: HYDROcodone Bitartrate/Apap 5/325 Tablet PO (15:44)
[2018-07-12 15:49] VITALS: BP 125/80; PULSE 80; RESP 18; O2SAT 98
== END 2018-07-12 15:50 | disposition home or self-care (01) ==
LOC: ED 14:59
PROVIDERS: Emergency Provider Emergency Medicine
DX: J44.9 Chronic obstructive pulmonary disease, unspecified (principal); M54.6 Pain in thoracic spine; Z72.0 Tobacco use
CPT/HCPCS: 71046; 99283

== ENCOUNTER 2019-06-30 14:58 | Observation (INO) | payer SELFPAY ==
[2018-12-08 13:32] VITALS: BMI 21.7
[2019-06-30] VITALS (13 sets, daily range): BP systolic 94–158; BP diastolic 63–100; PULSE 68–99; RESP 12–22; TEMP 36.6–37.4; O2SAT 95–99; BMI 21.7; BMI 21.2
--- NOTE | 2019-06-30 15:08 | CT_ITS ---
STUDY: CT ABDOMEN AND PELVIS WITH CONTRAST REASON FOR EXAM: Male, 48 years old. SEVERE N/V/D, PAIN MID-ABD RADIATION DOSAGE (If Supplied By Facility): CTDIvol = ( 9.93 ) mGy, DLP = ( 515.57 ) mGycm TECHNIQUE: Transaxial images were obtained from the dome of the diaphragm to the symphysis pubis without oral contrast. IV 100mL Isovue-300 was administered. Sagittal and coronal images were reconstructed. Individualized dose optimization techniques were used for this CT. COMPARISON: None. FINDINGS: There is a tiny calcified granuloma of the left lingula. The visualized portions of the heart are within normal limits. Normal liver. Normal gallbladder and extrahepatic biliary system. Normal spleen. Normal pancreas. Normal bilateral adrenal glands. Normal right kidney. Normal left kidney. Normal visualized stomach. Normal small intestine. Normal colon. The appendix is visualized and appears normal. There are calcified plaques of the abdominal aorta. Normal inferior vena cava. Normal retroperitoneum. Normal urinary bladder. The prostate, seminal vesicles, and seminal vesicle angles appear normal. There is a tiny umbilical hernia containing fat. There is mild endplate spondylosis of the lumbar spine. CT/Abdomen/Pelvis W IV Cont ONLY IMPRESSION: 1. Calcified plaques of the abdominal aorta. 2. Tiny fat-containing umbilical hernia. 3. There is no evidence of free intra-abdominal or intrapelvic air, fluid, or inflammatory process. Electronically Signed: Monty Montiel MD at 16:29 EDT , Service support ,
--- NOTE | 2019-06-30 15:09 | EKG12_ITS ---
Test Reason : ABD PAIN Blood Pressure : / mmHG Vent. Rate : 098 BPM Atrial Rate : 098 BPM P-R Int : 112 ms QRS Dur : 090 ms QT Int : 384 ms P-R-T Axes : 050 079 077 degrees QTc Int : 490 ms Normal sinus rhythm with sinus arrhythmia Prolonged QT Abnormal ECG Confirmed by ROBERTO CARLOS PICKERING ([id number]), metropolitan editor ALMA EMDELLIN ([id number] on 07/04/2019 1:05:02 PM Referred By: Joe Phillips Confirmed By:ROBERTO CARLOS PICKERING
[2019-06-30] MEDS: 0.9% Normal Saline 1,000 ML 999 ML IV ×3 (15:15→18:57)
--- NOTE | 2019-06-30 15:15 | RAD_ITS ---
STUDY: X-RAY CHEST REASON FOR EXAM: Male, 48 years old. COUGH TECHNIQUE: Single AP portable view of the chest. COMPARISON: Comparison is made with prior examination dated July 12, 2018. FINDINGS: EKG electrodes are seen. Hyperinflation. The lungs are clear. There is no demonstrated pleural abnormality. Normal size heart. Normal mediastinum and gena. Normal visualized pulmonary arteries. Normal visualized aortic arch and descending thoracic aorta. Normal visualized thoracic spine. Normal visualized ribs, clavicles, and shoulders. There is no demonstrated abnormality of the visualized soft tissue structures of the upper abdomen. RAD/Chest 1 View (Portable) IMPRESSION: Hyperinflation. Electronically Signed: Patrick Zabala, at 15:57 EDT , Service support ,
--- NOTE | 2019-06-30 15:18 | ED.DCSUM_ITS ---
- ER Visit Summary Date of Service: 06/30/19 Chief Complaint: Abdominal pain History of Present Illness: The patient is a 48 M with abdominal pain since this morning. He has both periumbilical pain and upper abdominal pain. Feels like knives stabbing him. Worse with bowel movements. He also reports a cough, chills, and sweats. This has been going on for about a week. He has a history of COPD and smoking. He thought it was a smoker's cough. He denies fever or sputum. Denies chest pain. Denies any cardiac issues. Denies any abdominal history, pancreatitis, etc. But he does drink regularly, and had 2 beers earlier today. Physical Examination: Afebrile and vital signs unremarkable except for heart rate of 99 and a respiratory rate of 22. Patient appears uncomfortable but not toxic or in distress. Heart is regular. Lungs are clear. Lower abdomen is tender to palpation. Skin appears normal without jaundice or pallor. Test Results: EKG, labs, chest x-ray, CT abdomen pending. Emergency Department Course and Treatment: Patient had coronavirus precautions. He was placed on IV, oxygen, monitor. Will evaluate for sepsis, abdominal causes, cardiopulmonary causes of his symptoms. Treated with fluids, morphine, Zofran while awaiting results. EKG showed sinus rhythm at a rate of 98. QTc 490. Troponin normal. White count normal, but lactic acid was 9.8. I am not sure what caused this. He does not have an obvious source of sepsis. Urinalysis was unremarkable. His abdominal scan was unremarkable. His chest x-ray was normal except for hyperinflation. Alcohol level was 192. Patient's blood pressure and other vital signs remained normal. He was doing well. Given his lactic acidosis, will contact the hospitalist for admission. Treatment Plan: As above Disposition: Admission Impression: Lactic acidosis, abdominal pain This note was generated with [employer] dictation software. It may contain incorrect words, spelling, and punctuation that were not noted in review of the chart prior to signing ED Disposition - Plan for ED Patient: Referrals: Care Physician,No Primary [Primary Care Provider] -
[2019-06-30] MEDS: Ondansetron 4 MG/2 ML Vial IV (15:19)
[2019-06-30] MEDS: Morphine 4 MG/ML Syringe IV (15:20)
[2019-06-30 15:37] LABS: Absolute Lymphocyte Count 2.02 X10^3/uL (0.83-4.51); Absolute Neutrophil Count 5.4 X10^3/uL (2.0-7.7); Basophil# 0.14 X10^3/uL; Basophil% 1.7 % (0-1); Eosinophil# 0.11 X10^3/uL; Eosinophils% 1.3 % (0-5); Hematocrit 46.1 % (40-54); Hemoglobin 15.9 g/dL (13.0-16.5); Lymphocyte # 2.02 X10^3/ul (4.0); Lymphocyte % 24.2 % (19-41); Mean Corp Hgb Conc 34.5 g/dL (32-36); Mean Corpuscular Hgb 31.6 pg (27.0-32.0); Mean Corpuscular Volume 91.7 fL (80-94); Mean Platelet Vol. 9.6 fl (6.2-12.0); Monocyte# 0.62 X10^3/uL; Monocyte% 7.4 % (0-10); NRBC Flagged by Analyzer 0 % (0-5); Neutrophil # 5.42 X10^3/uL (2.7-7.7); Neutrophil % 65.2 % (47-70); Platelet Count 188 K/mm3 (150-450); RBC Distribution Width CV 14.4 % (11.6-14.6); RBC Distribution Width SD 48.2 fl (35.1-43.9); Red Blood Count 5.03 M/mm3 (4.6-6.2); White Blood Count 8.3 K/mm3 (4.4-11.0)
[2019-06-30 15:41] LABS: International Normalized Ratio 0.9; Partial Thromboplast Time 23.2 Seconds (24.1-36.2); Prothrombin Time (Protime)PT. 11.7 SECONDS (11.7-14.9)
[2019-06-30 15:55] LABS: AST(SGOT) 34 U/L (15-37); Alanine Aminotransfer ALT/SGPT 44 U/L (16-61); Albumin, Serum 4.3 g/dL (3.2-5.0); Alkaline Phosphatase 75 U/L (45-117); Anion Gap 18 (5-15); BUN 6 mg/dL (7-18); Calcium,Total 9.1 mg/dL (8.5-10.1); Chloride 100 mmol/L (98-107); Creatinine, Serum 0.99 mg/dL (0.70-1.30); EST Glomerular Filtration Rate 85 mL/min (>60); Est Glom Filt Rate - Afr Amer 102 mL/min (>60); Estimated Creatinine Clearance 86.99 ml/min; Globulin 4.1 g/dL (2.2-4.2); Glucose 88 mg/dL (74-106); Lipase 133 U/L (73-393); Potassium 3.5 mmol/L (3.5-5.1); Protein, Total 8.4 g/dL (6.4-8.2); Sodium Level 137 mmol/L (136-145)
[2019-06-30 16:10] LABS: Lactic Acid 9.8 mmol/L (0.4-1.9)
[2019-06-30 16:34] LABS: Bacteria 0 SEEN /hpf (None Seen); Mucous, Urine 0 SEEN /hpf (<or=2+); Red Blood Cells-Urine 0 SEEN /hpf (0-5); Squamous Epithelial Cells - UA 0 SEEN /hpf (0-5); White Blood Cells 0 SEEN /hpf (0-5)
[2019-06-30 16:40] LABS: Color, Urine Straw (Yellow); Glucose, Dipstick Normal (Normal); Ketone-Dipstick Negative (Negative); Leukocyte Esterase-Dipstick Negative /ul (Negative); Nitrite-Dipstick Negative (Negative); Occult Blood-Urine Negative /ul (Negative); Protein-Dipstick Negative (Negative); Specific Gravity, Urine 1.015 (1.002-1.030); Urine Bilirubin Dipstick Negative (Negative); Urine Clarity Clear (Clear); Urine Urobilinogen Normal (Normal)
[2019-06-30 19:01] LABS: Lactic Acid 3.5 mmol/L (0.4-1.9)
--- NOTE | 2019-06-30 19:03 | ED.RN ---
lab called repeat lactic acid 3.[address] shelton
[2019-06-30 19:26] LABS: Reflex Lactate? Y
--- NOTE | 2019-06-30 19:45 | PCM.HP.STD ---
Problem List (1) Abdominal pain Status: Acute (2) Lactic acidosis Status: Acute (3) Encounter for examination required by Department of Transportation (DOT) Status: Acute (4) Acute back pain Status: Acute Qualifiers: Back pain location: low back pain Back pain laterality: unspecified Sciatica laterality: bilateral sciatica (5) Hypoxia Status: Acute (6) Aspiration pneumonitis Status: Acute (7) COPD exacerbation Status: Chronic (8) Alcohol use disorder Status: Acute (9) Nicotine dependence Status: Acute Qualifiers: Substance use status: unspecified nicotine-induced disorder History of Present Illness Date of Admission: 06/30/19 Chief Complaint: Abdominal pain and retrosternal chest pain since yesterday. The patient is a 48 year old M with history of chronic smoker and COPD came to ER with abdominal pain that started late last night. No abdominal pain progressed during daytime today with radiation to retrosternal chest along midline. Pain he described as 8-9/10 intensity which has improved in ER after morphine. Patient also has chronic cough probably from COPD but has new sore throat for last 3 4 days. He denies any fever but was soaked in sweats and chills in the morning today. He also had vomiting about 4-5 times, yellow bilious in nature without any blood. Denies hematemesis, melena or hematochezia. He also drinks alcohol about 6 bottles of beer every day. Last time he was admitted in July 2018 for lactic acidosis, shortness of breath URI symptoms was thought lactic acidosis was secondary to hypoxia. In ER, CT abdomen was done which shows no evidence of free intra-abdominal or intrapelvic air, fluid or evidence of inflammatory process. Chest x-ray was independently reviewed and shows hyperinflation but lungs are clear. Patient is further admitted in ICU. [] Past Medical History Past Medical History (Chronic Problems): Chronic Problems COPD exacerbation (Chronic) Allergies Penicillins [PCN] Allergy (Verified 06/30/19 15:08) Hives Home Medications: Ambulatory Orders Medication Instructions Recorded NK 06/30/19 Surgical History: no surgical history Psychiatric History: No pertinent psych hx Smoking Status: Current every day smoker - *Family History Maternal History Items: Cancer - Leukemia Paternal History Items: Diabetes Review of Systems Constitutional: Reports: Chills, Weakness, - - Soaked with sweat in the morning. Denies: Fever, Weight Change HEENT: Denies: Head Aches, Sinus Congestion, Sinus Drainage Cardiovascular: Denies: Chest Pain, Palpitations Respiratory: Reports: Cough - Chronic cough for a long time., - - Sore throat recent. Denies: Shortness of breath at rest, Sputum production Gastrointestinal: Denies: Abdominal Pain, Nausea, Vomiting Genitourinary: Denies: Dysuria, Frequency Musculoskeletal: Denies: Joint Pain, Joint Tenderness Skin: Denies: Rash, Wounds Neurological: Denies: Numbness, Tingling, Focal weakness Psychiatric: Denies: Anxiety, Depression, Homicidal Ideations, Suicidal Ideations Hematologic/ Lymphatic: Denies: Easy Bruising, Easy Bleeding VTE Information - Inpt Only VTE Present on Admission: No VTE Mechan Device Prophylaxis: SCD's VTE Pharm Prophylaxis ordered?: Yes Patient Problems: Active and Suspected Problems Abdominal pain (Acute) Lactic acidosis (Acute) - Physical Exam Vitals/I&O's: Vital Signs Temp Pulse Resp BP Pulse Ox 98 F 78 18 118/77 98 06/30/19 18:56 06/30/19 18:56 06/30/19 18:56 06/30/19 18:56 06/30/19 18:56 Oxygen Delivery Method Room Air Weight: 151 lb 14.376 oz Body Mass Index (BMI) 21.7 Intake and Output for Last 24 Hours 06/28/19 06/29/19 06/30/19 23:59 23:59 23:59 Intake Total 1999 Balance 1999 General: Alert, Oriented x3, Cooperative HEENT: Atraumatic, PERRLA, EOMI, Normocephalic Oral: No Gingival or Mucosal Lesions/ Ulcerations, Dry Mucosa Neck: Supple, No JVD, Negative Carotid Bruits Lungs: Clear to auscultation, No rhonchi, No wheeze, No rales, Diminished Cardiovascular: Regular rate, Regular Rhythm, Normal S1, Normal S2, No murmurs Abdomen: Bowel Sounds Present, Soft, Non-Distended, Tender - Tenderness present mostly in bilateral lower quadrants. Extremities: No edema, Capillary Refill Less than 3 Seconds Skin: No rashes, No breakdown Musculoskeletal: No Tenderness to Palpation of Joints or Extremities Neurological: Cranial nerves II-XII grossly intact, Deep Tendon Reflexes 2+/4 and Symmetrical, Neuro grossly intact Psych/Mental Status: Normal Affect, Appropriate Laboratory Results 06/30/19 15:11: Sodium 137, Potassium 3.5, Chloride 100, Carbon Dioxide 19.0 L, Anion Gap 18 H, BUN 6 L, Creatinine 0.99, Estim Creat Clear Calc 86.99, Est GFR (MDRD) Af Amer 102, Est GFR (MDRD) Non-Af 85, BUN/Creatinine Ratio 6.0 L, Glucose 88, Calcium 9.1, Total Bilirubin 0.40, AST 34, ALT 44, Alkaline Phosphatase 75, Troponin I < 0.015, Total Protein 8.4 H, Albumin 4.3, Globulin 4.1, Albumin/Globulin Ratio 1.0, Lipase 133 06/30/19 15:11: Ethyl Alcohol 192.0 06/30/19 15:11: WBC 8.3, RBC 5.03, Hgb 15.9, Hct 46.1, MCV 91.7, MCH 31.6, MCHC 34.5, RDW Std Deviation 48.2 H, RDW Coeff of Sujata 14.4, Plt Count 188, MPV 9.6, Immature Gran % (Auto) 0.200, Neut % (Auto) 65.2, Lymph % (Auto) 24.2, Dare % (Auto) 7.4, Eos % (Auto) 1.3, Baso % (Auto) 1.7 H, Absolute Neuts (auto) 5.4, Absolute Lymphs (auto) 2.02, Nucleated RBC % 0 06/30/19 15:11: PT 11.7, INR 0.9, APTT 23.2 L 06/30/19 15:11: Lactic Acid 9.8 H* 06/30/19 16:26: Urine Color Straw, Urine Clarity Clear, Urine pH 8.0, Ur Specific Linwood 1.015, Urine Protein Negative, Urine Glucose (UA) Normal, Urine Ketones Negative, Urine Occult Blood Negative, Urine Nitrite Negative, Urine Bilirubin Negative, Urine Urobilinogen Normal, Ur Leukocyte Esterase Negative, Urine RBC 0 SEEN, Urine WBC 0 SEEN, Ur Squamous Epith Cells 0 SEEN, Urine Bacteria 0 SEEN, Urine Mucus 0 SEEN 06/30/19 17:57: Lactic Acid 3.5 H* Assessment/Plan All Active Problems Abdominal pain (Acute) Lactic acidosis (Acute) Encounter for examination required by Department of Transportation (DOT) (Acute) Acute back pain (Acute) Hypoxia (Acute) Aspiration pneumonitis (Acute) Alcohol use disorder (Acute) Nicotine dependence (Acute) The patient is a 48 year old M with history of chronic smoker and COPD came to ER with abdominal pain that started late last night. Patient also has chronic cough probably from COPD but has new sore throat for last 3 4 days. He denies any fever but was soaked in sweats and chills in the morning today. In ER, CT abdomen was done which shows no evidence of free intra-abdominal or intrapelvic air, fluid or evidence of inflammatory process. Chest x-ray was independently reviewed and shows hyperinflation but lungs are clear. EKG normal sinus rhythm 98 bpm with sinus arrhythmia. Patient is further admitted in ICU. 1. Abdominal pain and midline retrosternal chest pain with high lactic acidosis, exact etiology unclear: Patient is being admitted in ICU. Patient had 2 L of normal saline bolus and will start on Ringer lactate 150 mill per hour. Lactic acid is 9.8 which improved to 3.5. There are few differential diagnosis include dyspepsia pain, possible ischemic colitis or severe sepsis in view of high lactic acid. Respiratory panel ordered. At this point, patient does not qualify for starting antibiotic but needs to be monitored closely. General surgeon was consulted from ER physician. Naturopathic Physician is been consulted as per protocol. 2. Chronic alcohol use and dependence: CIWA IV Ativan protocol as per CIWA scale. Transaminases, alkaline phosphatase, total bili are normal. Albumin 4.3 and INR 0.9. Serum alcohol, GGT and U tox ordered. 3. Suspicion of COPD based on chest x-ray and chronic smoker: This has never been evaluated by PFT. Currently patient does not seem to be in exacerbation. On bronchodilator. Patient smokes about 1 pack/day since teenage. 4. DVT prophylaxis: Lovenox 40 mg subcu daily. Advanced directive/living will: Patient not have living will. Patient does not see a PCP. Patient does want artificial life support including intubation, tube feed, ventilator and/chest compression. Full code. Total time spent in [id number] encounter in discussion of advanced directive 16 minutes. Laboratory Results 06/30/19 15:11: Sodium 137, Potassium 3.5, Chloride 100, Carbon Dioxide 19.0 L, Anion Gap 18 H, BUN 6 L, Creatinine 0.99, Estim Creat Clear Calc 86.99, Est GFR (MDRD) Af Amer 102, Est GFR (MDRD) Non-Af 85, BUN/Creatinine Ratio 6.0 L, Glucose 88, Calcium 9.1, Total Bilirubin 0.40, AST 34, ALT 44, Alkaline Phosphatase 75, Troponin I < 0.015, Total Protein 8.4 H, Albumin 4.3, Globulin 4.1, Albumin/Globulin Ratio 1.0, Lipase 133 06/30/19 15:11: Ethyl Alcohol 192.0 06/30/19 15:11: WBC 8.3, RBC 5.03, Hgb 15.9, Hct 46.1, MCV 91.7, MCH 31.6, MCHC 34.5, RDW Std Deviation 48.2 H, RDW Coeff of Sujata 14.4, Plt Count 188, MPV 9.6, Immature Gran % (Auto) 0.200, Neut % (Auto) 65.2, Lymph % (Auto) 24.2, Dare % (Auto) 7.4, Eos % (Auto) 1.3, Baso % (Auto) 1.7 H, Absolute Neuts (auto) 5.4, Absolute Lymphs (auto) 2.02, Nucleated RBC % 0 06/30/19 15:11: PT 11.7, INR 0.9, APTT 23.2 L 06/30/19 15:11: Lactic Acid 9.8 H* 06/30/19 16:26: Urine Color Straw, Urine Clarity Clear, Urine pH 8.0, Ur Specific Linwood 1.015, Urine Protein Negative, Urine Glucose (UA) Normal, Urine Ketones Negative, Urine Occult Blood Negative, Urine Nitrite Negative, Urine Bilirubin Negative, Urine Urobilinogen Normal, Ur Leukocyte Esterase Negative, Urine RBC 0 SEEN, Urine WBC 0 SEEN, Ur Squamous Epith Cells 0 SEEN, Urine Bacteria 0 SEEN, Urine Mucus 0 SEEN 06/30/19 17:57: Lactic Acid 3.5 H* Clinical Impression(s) from Imaging Studies Abdomen/Pelvis CT 06/30/19 15:08 IMPRESSION: 1. Calcified plaques of the abdominal aorta. 2. Tiny fat-containing umbilical hernia. 3. There is no evidence of free intra-abdominal or intrapelvic air, fluid, or inflammatory process. Chest X-Ray 06/30/19 15:15 IMPRESSION: Hyperinflation. Inpatient E&M: 52547 In Hosp L3 Procedures: 30708 Advncd Care Plan 30 Min
[2019-06-30 22:02] LABS: GGTP 42 U/L (15-85)
[2019-06-30 22:03] LABS: Reflex Lactate? Y
[2019-06-30] MEDS: Lactated Ringers 1,000 ML 150 ML IV (22:08)
[2019-06-30 22:21] LABS: Lactic Acid 1.5 mmol/L (0.4-1.9)
[2019-06-30] MEDS: LORazepam 1 MG Tablet 2 MG PO (22:32)
[2019-06-30 22:49] LABS: Amphetamine Urine VISTA NEGATIVE (<1000 ng/mL); Barbiturate Urine VISTA NEGATIVE (< 200 ng/mL); Benzodiazepine Urine VISTA NEGATIVE (< 200 ng/mL); Cocaine Urine VISTA NEGATIVE (< 300 ng/mL); Ecstacy Urine VISTA NEGATIVE (< 500 ng/mL); Methadone Urine VISTA NEGATIVE (< 300 ng/mL); PCP Urine VISTA NEGATIVE (< 25 ng/mL); THC Urine VISTA NEGATIVE (< 50 ng/mL); Vista UDS pH Range 7
[2019-07-01] VITALS (13 sets, daily range): BP systolic 102–135; BP diastolic 68–94; PULSE 71–106; RESP 14–21; TEMP 37.2–37.7; O2SAT 91–98
[2019-07-01] MEDS: Albuterol 2.5 MG/3 ML VIAL.NEB. INHALATION (02:07)
[2019-07-01] MEDS: LORazepam 1 MG Tablet 2 MG PO ×2 (03:53→09:47)
[2019-07-01 04:19] LABS: Absolute Lymphocyte Count 1.71 X10^3/uL (0.83-4.51); Absolute Neutrophil Count 3.1 X10^3/uL (2.0-7.7); Basophil% 1.8 % (0-1); Eosinophil# 0.17 X10^3/uL; Hematocrit 37.6 % (40-54); Hemoglobin 12.8 g/dL (13.0-16.5); Lymphocyte # 1.71 X10^3/ul (4.0); Mean Corpuscular Hgb 31.8 pg (27.0-32.0); Mean Corpuscular Volume 93.5 fL (80-94); Mean Platelet Vol. 10.1 fl (6.2-12.0); Monocyte# 0.57 X10^3/uL; NRBC Flagged by Analyzer 0 % (0-5); Neutrophil # 3.13 X10^3/uL (2.7-7.7); Neutrophil % 54.8 % (47-70); Platelet Count 138 K/mm3 (150-450); RBC Distribution Width CV 14.6 % (11.6-14.6); RBC Distribution Width SD 50.5 fl (35.1-43.9); Red Blood Count 4.02 M/mm3 (4.6-6.2); White Blood Count 5.7 K/mm3 (4.4-11.0)
[2019-07-01 04:53] LABS: BUN 7 mg/dL (7-18); Creatinine, Serum 0.74 mg/dL (0.70-1.30); EST Glomerular Filtration Rate 118 mL/min (>60); Estimated Creatinine Clearance 113.68 ml/min; Glucose 96 mg/dL (74-106)
[2019-07-01 04:54] LABS: Anion Gap 10 (5-15); BUN/Creat Ratio 9.4 RATIO (10-20); Calcium,Total 7.6 mg/dL (8.5-10.1); Chloride 102 mmol/L (98-107); Est Glom Filt Rate - Afr Amer 143 mL/min (>60); Potassium 3.2 mmol/L (3.5-5.1); Sodium Level 138 mmol/L (136-145)
[2019-07-01] MEDS: Lactated Ringers 1,000 ML 150 ML IV (05:49)
--- NOTE | 2019-07-01 06:38 | PCM.CON.CC ---
Reason for Consult Date of Consultation: 07/01/19 Reason for Consultation: Lactic acidemia History of Present Illness: The patient is a 48-year-old male, with a history as outlined below, who presented to the emergency department on June 29 with complaints of abdominal pain. He denied the presence of shortness of breath. He did initially report the presence of a cough, which has since resolved. The patient does have a self-reported history of COPD along with chronic tobacco and alcohol dependency. He does report the presence of dysuria and pain with defecation. The patient states that he drinks on average 5 beers daily. On presentation to the emergency department, the patient was noted to be afebrile and hemodynamically stable. He was maintaining appropriate oxygen saturations on room air. Laboratory evaluation revealed no evidence of leukocytosis. Chemistry profile was unremarkable. Initial lactate was elevated to 9.8. Troponin was negative. Urine analysis was unremarkable. Toxicology screen was negative. Alcohol level was 192. CT abdomen/pelvis revealed no evidence of free intra-abdominal or intrapelvic air, fluid or inflammatory process. Chest x-ray revealed no evidence of a focal infiltrate, consolidation or groundglass changes. Respiratory viral panel was negative. The patient did receive some supplemental IV fluids and was then admitted to the medical intensive care unit due to his elevated lactate level. Overnight, the patient has remained hemodynamically stable. Recheck of the patient's lactate revealed normalization. Abdominal pain has improved. Past Medical History Past Medical History (Chronic Problems): Chronic Problems COPD exacerbation (Chronic) Allergies Penicillins [PCN] Allergy (Verified 06/30/19 15:08) Hives Home Medications: Ambulatory Orders Medication Instructions Recorded Ciprofloxacin [Cipro] 500 mg PO BID #41 tab 07/01/19 Pantoprazole Sodium [Protonix] 40 mg PO DAILY #30 tab 07/01/19 Surgical History: no surgical history Psychiatric History: No pertinent psych hx Smoking Status: Current every day smoker - *Family History Maternal History Items: Cancer - Leukemia Paternal History Items: Diabetes Review of Systems Constitutional: Denies: Chills, Fever Eyes: Denies: Blurred vision, Double vision HEENT: Denies: Head Aches, Sinus Congestion, Sinus Drainage Cardiovascular: Denies: Chest Pain, Palpitations Respiratory: Denies: Cough, Shortness of breath at rest, Sputum production Gastrointestinal: Reports: Abdominal Pain. Denies: Diarrhea, Vomiting Genitourinary: Reports: Dysuria Musculoskeletal: Denies: Joint Pain, Joint Tenderness Skin: Denies: Rash, Wounds Neurological: Denies: Numbness, Tingling, Focal weakness Psychiatric: Denies: Anxiety, Depression, Homicidal Ideations, Suicidal Ideations Hematologic/ Lymphatic: Denies: Easy Bruising, Easy Bleeding Patient Problems: Active and Suspected Problems Abdominal pain (Acute) Lactic acidosis (Acute) Objective: The patient's most recent lab work, culture data and imaging studies have all been personally reviewed. Respiratory viral panel was negative. Blood and urine cultures are pending. - Physical Exam Vitals/I&O's: Vital Signs Temp Pulse Resp BP Pulse Ox 99.8 F H 82 17 118/74 93 07/01/19 04:00 07/01/19 06:00 07/01/19 06:00 07/01/19 06:00 07/01/19 06:00 Oxygen Delivery Method Room Air Weight: 152 lb 5.431 oz Body Mass Index (BMI) 21.2 Intake and Output for Last 24 Hours 06/29/19 06/30/19 07/01/19 23:59 23:59 23:59 Intake Total 3240 / 4040 1897.5 / 1897.5 Output Total 800 / 800 Balance 3240 / 3640 1097.5 / 1097.5 General: Alert, Cooperative, No apparent distress, - - Seems a bit tremulous this morning HEENT: Atraumatic, PERRLA, Normocephalic Oral: No Gingival or Mucosal Lesions/ Ulcerations Neck: Supple, No Nodes, Trachea Midline Lungs: No rhonchi, No wheeze, No rales, Diminished Cardiovascular: Regular rate, Regular Rhythm, Normal S1, Normal S2, No murmurs Abdomen: Bowel Sounds Present, Soft, - - Mild suprapubic tenderness Extremities: No clubbing, No cyanosis, No edema Skin: No breakdown Musculoskeletal: No Tenderness to Palpation of Joints or Extremities Lymphatic: No Cervical, Supraclavicular, or Inguinal Adenopathy Neurological: Cranial nerves II-XII grossly intact, Neuro grossly intact Psych/Mental Status: Normal Affect, Appropriate Labs (Last 48 Hours) 06/30/19 06/30/19 06/30/19 15:11 15:11 15:11 WBC 8.3 RBC 5.03 Hgb 15.9 Hct 46.1 MCV 91.7 MCH 31.6 MCHC 34.5 RDW Std Deviation 48.2 H RDW Coeff of Sujata 14.4 Plt Count 188 MPV 9.6 Immature Gran % (Auto) 0.200 Neut % (Auto) 65.2 Lymph % (Auto) 24.2 [place] % (Auto) 7.4 Eos % (Auto) 1.3 Baso % (Auto) 1.7 H Absolute Neuts (auto) 5.4 Absolute Lymphs (auto) 2.02 Nucleated RBC % 0 PT INR APTT Sodium 137 Potassium 3.5 Chloride 100 Carbon Dioxide 19.0 L Anion Gap 18 H BUN 6 L Creatinine 0.99 Estim Creat Clear Calc 86.99 Est GFR (MDRD) Af Amer 102 Est GFR (MDRD) Non-Af 85 BUN/Creatinine Ratio 6.0 L Glucose 88 Lactic Acid Calcium 9.1 Magnesium Total Bilirubin 0.40 GGT AST 34 ALT 44 Alkaline Phosphatase 75 Troponin I < 0.015 Total Protein 8.4 H Albumin 4.3 Globulin 4.1 Albumin/Globulin Ratio 1.0 Lipase 133 Urine Color Urine Clarity Urine pH Ur Specific [place] Urine Protein Urine Glucose (UA) Urine Ketones Urine Occult Blood Urine Nitrite Urine Bilirubin Urine Urobilinogen Ur Leukocyte Esterase Urine RBC Urine WBC Ur Squamous Epith Cells Urine Bacteria Urine Mucus Urine Opiates Screen Urine Methadone Screen Ur Barbiturates Screen Ur Phencyclidine Scrn Ur Amphetamines Screen U Methamphetamin-MDMA U Benzodiazepines Scrn Urine Cocaine Screen U Cannabinoids Screen Ur Drug Screen Comment Ethyl Alcohol 192.0 06/30/19 06/30/19 06/30/19 15:11 15:11 15:11 WBC RBC Hgb Hct MCV MCH MCHC RDW Std Deviation RDW Coeff of Sujata Plt Count MPV Immature Gran % (Auto) Neut % (Auto) Lymph % (Auto) [place] % (Auto) Eos % (Auto) Baso % (Auto) Absolute Neuts (auto) Absolute Lymphs (auto) Nucleated RBC % PT 11.7 INR 0.9 APTT 23.2 L Sodium Potassium Chloride Carbon Dioxide Anion Gap BUN Creatinine Estim Creat Clear Calc Est GFR (MDRD) Af Amer Est GFR (MDRD) Non-Af BUN/Creatinine Ratio Glucose Lactic Acid 9.8 H* Calcium Magnesium 2.0 Total Bilirubin GGT 42 AST ALT Alkaline Phosphatase Troponin I Total Protein Albumin Globulin Albumin/Globulin Ratio Lipase Urine Color Urine Clarity Urine pH Ur Specific [place] Urine Protein Urine Glucose (UA) Urine Ketones Urine Occult Blood Urine Nitrite Urine Bilirubin Urine Urobilinogen Ur Leukocyte Esterase Urine RBC Urine WBC Ur Squamous Epith Cells Urine Bacteria Urine Mucus Urine Opiates Screen Urine Methadone Screen Ur Barbiturates Screen Ur Phencyclidine Scrn Ur Amphetamines Screen U Methamphetamin-MDMA U Benzodiazepines Scrn Urine Cocaine Screen U Cannabinoids Screen Ur Drug Screen Comment Ethyl Alcohol 06/30/19 06/30/19 06/30/19 16:26 16:26 17:57 WBC RBC Hgb Hct MCV MCH MCHC RDW Std Deviation RDW Coeff of Sujata Plt Count MPV Immature Gran % (Auto) Neut % (Auto) Lymph % (Auto) [place] % (Auto) Eos % (Auto) Baso % (Auto) Absolute Neuts (auto) Absolute Lymphs (auto) Nucleated RBC % PT INR APTT Sodium Potassium Chloride Carbon Dioxide Anion Gap BUN Creatinine Estim Creat Clear Calc Est GFR (MDRD) Af Amer Est GFR (MDRD) Non-Af BUN/Creatinine Ratio Glucose Lactic Acid 3.5 H* Calcium Magnesium Total Bilirubin GGT AST ALT Alkaline Phosphatase Troponin I Total Protein Albumin Globulin Albumin/Globulin Ratio Lipase Urine Color Straw Urine Clarity Clear Urine pH 8.0 Ur Specific [place] 1.015 Urine Protein Negative Urine Glucose (UA) Normal Urine Ketones Negative Urine Occult Blood Negative Urine Nitrite Negative Urine Bilirubin Negative Urine Urobilinogen Normal Ur Leukocyte Esterase Negative Urine RBC 0 SEEN Urine WBC 0 SEEN Ur Squamous Epith Cells 0 SEEN Urine Bacteria 0 SEEN Urine Mucus 0 SEEN Urine Opiates Screen NEGATIVE Urine Methadone Screen NEGATIVE Ur Barbiturates Screen NEGATIVE Ur Phencyclidine Scrn NEGATIVE Ur Amphetamines Screen NEGATIVE U Methamphetamin-MDMA NEGATIVE U Benzodiazepines Scrn NEGATIVE Urine Cocaine Screen NEGATIVE U Cannabinoids Screen NEGATIVE Ur Drug Screen Comment Ethyl Alcohol 06/30/19 06/30/19 07/01/19 21:35 22:00 04:00 WBC 5.7 RBC 4.02 L Hgb 12.8 L Hct 37.6 L MCV 93.5 MCH 31.8 MCHC 34.0 RDW Std Deviation 50.5 H RDW Coeff of Sujata 14.6 Plt Count 138 L MPV 10.1 Immature Gran % (Auto) 0.400 Neut % (Auto) 54.8 Lymph % (Auto) 30.0 [place] % (Auto) 10.0 Eos % (Auto) 3.0 Baso % (Auto) 1.8 H Absolute Neuts (auto) 3.1 Absolute Lymphs (auto) 1.71 Nucleated RBC % 0 PT INR APTT Sodium Potassium Chloride Carbon Dioxide Anion Gap BUN Creatinine Estim Creat Clear Calc Est GFR (MDRD) Af Amer Est GFR (MDRD) Non-Af BUN/Creatinine Ratio Glucose Lactic Acid 1.5 Calcium Magnesium Total Bilirubin GGT AST ALT Alkaline Phosphatase Troponin I Total Protein Albumin Globulin Albumin/Globulin Ratio Lipase Urine Color Urine Clarity Urine pH Ur Specific [place] Urine Protein Urine Glucose (UA) Urine Ketones Urine Occult Blood Urine Nitrite Urine Bilirubin Urine Urobilinogen Ur Leukocyte Esterase Urine RBC Urine WBC Ur Squamous Epith Cells Urine Bacteria Urine Mucus Urine Opiates Screen Urine Methadone Screen Ur Barbiturates Screen Ur Phencyclidine Scrn Ur Amphetamines Screen U Methamphetamin-MDMA U Benzodiazepines Scrn Urine Cocaine Screen U Cannabinoids Screen Ur Drug Screen Comment Ethyl Alcohol 5.0 07/01/19 04:00 WBC RBC Hgb Hct MCV MCH MCHC RDW Std Deviation RDW Coeff of Sujata Plt Count MPV Immature Gran % (Auto) Neut % (Auto) Lymph % (Auto) [place] % (Auto) Eos % (Auto) Baso % (Auto) Absolute Neuts (auto) Absolute Lymphs (auto) Nucleated RBC % PT INR APTT Sodium 138 Potassium 3.2 L Chloride 102 Carbon Dioxide 26.0 Anion Gap 10 BUN 7 Creatinine 0.74 Estim Creat Clear Calc 113.68 Est GFR (MDRD) Af Amer 143 Est GFR (MDRD) Non-Af 118 BUN/Creatinine Ratio 9.4 L Glucose 96 Lactic Acid Calcium 7.6 L Magnesium Total Bilirubin GGT AST ALT Alkaline Phosphatase Troponin I Total Protein Albumin Globulin Albumin/Globulin Ratio Lipase Urine Color Urine Clarity Urine pH Ur Specific [place] Urine Protein Urine Glucose (UA) Urine Ketones Urine Occult Blood Urine Nitrite Urine Bilirubin Urine Urobilinogen Ur Leukocyte Esterase Urine RBC Urine WBC Ur Squamous Epith Cells Urine Bacteria Urine Mucus Urine Opiates Screen Urine Methadone Screen Ur Barbiturates Screen Ur Phencyclidine Scrn Ur Amphetamines Screen U Methamphetamin-MDMA U Benzodiazepines Scrn Urine Cocaine Screen U Cannabinoids Screen Ur Drug Screen Comment Ethyl Alcohol Microbiology 06/30/19 21:50 Mucosa - Nasopharyngeal Respiratory Panel (PCR) - Final Clinical Impression(s) from Imaging Studies Abdomen/Pelvis CT 06/30/19 15:08 IMPRESSION: 1. Calcified plaques of the abdominal aorta. 2. Tiny fat-containing umbilical hernia. 3. There is no evidence of free intra-abdominal or intrapelvic air, fluid, or inflammatory process. Electronically Signed: Monty Montiel MD at 16:29 EDT , Service support , Chest X-Ray 06/30/19 15:15 IMPRESSION: Hyperinflation. Electronically Signed: Patrick Zabala, at 15:57 EDT , Service support , Current Medications Acetaminophen (Tylenol) 650 mg PO Q6H PRN PRN PRN Reason: Pain Score 1-10/Temp > 100.7 F Al Hydroxide/Mg Hydroxide (Mylanta Ii) 30 ml PO Q6H PRN PRN PRN Reason: Gastric Burning Albuterol Sulfate (Ventolin Aerosols) 2.5 mg INHALATION Q2H PRN PRN PRN Reason: SOB/Wheezing Last Admin: 07/01/19 02:07 Dose: 2.5 mg Documented by: Albuterol/Ipratropium (Duoneb) 3 ml INHALATION Q6HWA.RT [facility] Dextrose (D50w Syringe) 0 gm IV X1 PRN; Protocol PRN Reason: Hypoglycemia Enoxaparin Sodium (Lovenox) 40 mg SC DAILY [facility] Folic Acid (Folic Acid) 1 mg PO DAILY@0800 [facility] Stop: 07/03/19 08:01 Glucagon () 1 mg IM .X1 PRN PRN Reason: Hypoglycemia Lactated Ringer's () 1,000 mls @ 150 mls/hr IV .Q6H40M [facility] Last Admin: 07/01/19 05:49 Dose: 150 mls/hr Documented by: Pantoprazole Sodium 40 mg/ (Sodium Chloride) 110 mls @ 330 mls/hr IV Q12 [facility] Last Infusion: 06/30/19 22:34 Dose: Infused Documented by: Lorazepam (Ativan) 2 mg PO Q2H PRN PRN; Protocol PRN Reason: CIWA score > 8 but <15 Lorazepam (Ativan) 2 mg PO UD PRN; Protocol PRN Reason: CIWA score >/=15. Lorazepam (Ativan) 2 mg IV Q2H PRN PRN; Protocol PRN Reason: CIWA score > 8 but <15 Lorazepam (Ativan) 2 mg IV UD PRN; Protocol PRN Reason: CIWA score >/=15. Lorazepam (Ativan) 1 mg PO Q24H PRN PRN Reason: Agitation Lorazepam (Ativan) 2 mg PO Q6H JULIUS; Taper Stop: 07/06/19 22:29 Last Admin: 07/01/19 03:53 Dose: 2 mg Documented by: Morphine Sulfate () 2 mg IV Q3H PRN PRN PRN Reason: Pain Score 6-10/10 Multivitamins/Minerals (Multivitamin With Minerals (Bkc)) [facility] Nicotine (Nicoderm Cq (Pbkc)) 21 mg TRANSDERM. DAILY [facility] Last Admin: 06/30/19 22:07 Dose: 21 mg Documented by: Ondansetron HCl (Zofran) 4 mg IV Q8H PRN PRN PRN Reason: NAUSEA/VOMITING Oxycodone HCl (Oxyir) 5 mg PO Q4H PRN PRN PRN Reason: Pain Score 4-5/10 Prochlorperazine Edisylate (Compazine Iv) 5 mg IV Q4H PRN PRN PRN Reason: Breakthrough Nausea/Vomiting Senna/Docusate Sodium (Senokot-S, Letty-Colace) 2 tablet PO BID PRN PRN PRN Reason: Constipation Sodium Chloride () 10 - 40 ml IV UD PRN PRN Reason: SALINE FLUSH Thiamine HCl (Vitamin B1) [facility] Stop: 07/03/19 17:01 Assessment/Plan Active and Suspected Problems Abdominal pain (Acute) Lactic acidosis (Acute) RECOMMENDATIONS: 1. Discontinue IV fluids and encourage p.o. intake. 2. Defer management/additional work-up of abdominal pain to hospitalist. 3. There is no need for COVID testing. Isolation precautions have been discontinued. 4. The patient is medically stable for transfer out of the intensive care unit. 5. Will sign off from a critical care perspective. IMPRESSIONS: 1. Abdominal pain CT abdomen/pelvis was unremarkable. Clinical suspicion for potential prostatitis. General surgery has already evaluated the patient. Abdominal pain is improved this morning. 2. Lactic acidemia Unclear precipitating etiology, as there does not appear to be any focal source of infection. White blood cell count is normal. Unclear if the patient's initial lactate lab work was drawn with a tourniquet on, especially since the lactic acidemia resolved quite quickly. 3. Hypokalemia Electrolyte repletion as ordered. 4. History of alcohol and tobacco dependency/possible COPD Complicates care, management, recovery and prognosis. I personally spent 5 minutes discussing the deleterious effects of continued tobacco use with the patient, including modalities which could be utilized to achieve a smoke-free lifestyle. The patient has been offered nicotine replacement therapy while admitted to the hospital. If agreeable, the patient can follow-up in the pulmonary medicine clinic to obtain baseline pulmonary function studies. This note was generated with [employer] dictation software. It may contain incorrect words, spelling, and punctuation that were not noted in checking the note before signing. Inpatient E&M: 63111 Init Hosp L3 - Behavior Interventions Behavior Intervention: 70402 Smoking Cessation 3-10 min
[2019-07-01] MEDS: Ipratropium/Albuterol Sulfate 3 ML AMPUL.NEB INHALATION (08:05)
--- NOTE | 2019-07-01 08:17 | PCM.CONS.GEN ---
Problem List (1) Abdominal pain Status: Acute Reason for Consult Date of Consultation: 07/01/19 History of Present Illness: The patient is a 48 year old M who had sudden onset abdominal pain yesterday. The patient reports he is been eating and drinking well with no nausea or vomiting. The abdominal pain is in his lower abdomen. He says overnight the pain did decrease and is only mildly uncomfortable in his lower abdomen at this point. He reports he has been having sharp pain with defecation and urination. Past Medical History Past Medical History (Chronic Problems): Chronic Problems COPD exacerbation (Chronic) Allergies Penicillins [PCN] Allergy (Verified 06/30/19 15:08) Hives Home Medications: Ambulatory Orders Medication Instructions Recorded NK 06/30/19 Surgical History: no surgical history Psychiatric History: No pertinent psych hx Smoking Status: Current every day smoker - *Family History Maternal History Items: Cancer - Leukemia Paternal History Items: Diabetes Review of Systems Constitutional: Denies: Anorexia, Fever HEENT: Denies: Difficulty Swallowing Cardiovascular: Denies: Chest Pain Respiratory: Denies: Cough, Shortness of Breath Gastrointestinal: Reports: Abdominal Pain. Denies: Constipation, Diarrhea, Hematemesis, Hematochezia, Nausea, Vomiting Genitourinary: Reports: Dysuria Psychiatric: Denies: Anxiety, Depression Hematologic/ Lymphatic: Denies: Anemia Patient Problems: Active and Suspected Problems Abdominal pain (Acute) Lactic acidosis (Acute) - Physical Exam Vitals/I&O's: Vital Signs Temp Pulse Resp BP Pulse Ox 99.8 F H 80 16 118/74 98 07/01/19 04:00 07/01/19 08:05 07/01/19 08:05 07/01/19 06:00 07/01/19 08:05 Oxygen Delivery Method Room Air Weight: 152 lb 5.431 oz Body Mass Index (BMI) 21.2 Intake and Output for Last 24 Hours 06/29/19 06/30/19 07/01/19 23:59 23:59 23:59 Intake Total 3240 / 4040 1897.5 / 1897.5 Output Total 800 / 800 Balance 3240 / 3640 1097.5 / 1097.5 General: Alert, Oriented x3 Neck: No JVD Lungs: Normal air movement Cardiovascular: Regular Rhythm, Tachycardic Abdomen: Soft, Non-Distended, Tender - Tender in the lower abdomen with no guarding or rebound Microbiology Past 72 Hours 06/30/19 21:50 Mucosa - Nasopharyngeal Respiratory Panel (PCR) - Final Laboratory Results 06/30/19 15:11: Sodium 137, Potassium 3.5, Chloride 100, Carbon Dioxide 19.0 L, Anion Gap 18 H, BUN 6 L, Creatinine 0.99, Estim Creat Clear Calc 86.99, Est GFR (MDRD) Af Amer 102, Est GFR (MDRD) Non-Af 85, BUN/Creatinine Ratio 6.0 L, Glucose 88, Calcium 9.1, Total Bilirubin 0.40, AST 34, ALT 44, Alkaline Phosphatase 75, Troponin I < 0.015, Total Protein 8.4 H, Albumin 4.3, Globulin 4.1, Albumin/Globulin Ratio 1.0, Lipase 133 06/30/19 15:11: Ethyl Alcohol 192.0 06/30/19 15:11: WBC 8.3, RBC 5.03, Hgb 15.9, Hct 46.1, MCV 91.7, MCH 31.6, MCHC 34.5, RDW Std Deviation 48.2 H, RDW Coeff of Sujata 14.4, Plt Count 188, MPV 9.6, Immature Gran % (Auto) 0.200, Neut % (Auto) 65.2, Lymph % (Auto) 24.2, [place] % (Auto) 7.4, Eos % (Auto) 1.3, Baso % (Auto) 1.7 H, Absolute Neuts (auto) 5.4, Absolute Lymphs (auto) 2.02, Nucleated RBC % 0 06/30/19 15:11: PT 11.7, INR 0.9, APTT 23.2 L 06/30/19 15:11: Lactic Acid 9.8 H* 06/30/19 15:11: Magnesium 2.0, GGT 42 06/30/19 16:26: Urine Color Straw, Urine Clarity Clear, Urine pH 8.0, Ur Specific [place] 1.015, Urine Protein Negative, Urine Glucose (UA) Normal, Urine Ketones Negative, Urine Occult Blood Negative, Urine Nitrite Negative, Urine Bilirubin Negative, Urine Urobilinogen Normal, Ur Leukocyte Esterase Negative, Urine RBC 0 SEEN, Urine WBC 0 SEEN, Ur Squamous Epith Cells 0 SEEN, Urine Bacteria 0 SEEN, Urine Mucus 0 SEEN 06/30/19 16:26: Urine Opiates Screen NEGATIVE, Urine Methadone Screen NEGATIVE, Ur Barbiturates Screen NEGATIVE, Ur Phencyclidine Scrn NEGATIVE, Ur Amphetamines Screen NEGATIVE, U Methamphetamin-MDMA NEGATIVE, U Benzodiazepines Scrn NEGATIVE, Urine Cocaine Screen NEGATIVE, U Cannabinoids Screen NEGATIVE, Ur Drug Screen Comment 06/30/19 17:57: Lactic Acid 3.5 H* 06/30/19 21:35: Lactic Acid 1.5 06/30/19 22:00: Ethyl Alcohol 5.0 07/01/19 04:00: WBC 5.7, RBC 4.02 L, Hgb 12.8 L, Hct 37.6 L, MCV 93.5, MCH 31.8, MCHC 34.0, RDW Std Deviation 50.5 H, RDW Coeff of Sujata 14.6, Plt Count 138 L, MPV 10.1, Immature Gran % (Auto) 0.400, Neut % (Auto) 54.8, Lymph % (Auto) 30.0, [place] % (Auto) 10.0, Eos % (Auto) 3.0, Baso % (Auto) 1.8 H, Absolute Neuts (auto) 3.1, Absolute Lymphs (auto) 1.71, Nucleated RBC % 0 07/01/19 04:00: Sodium 138, Potassium 3.2 L, Chloride 102, Carbon Dioxide 26.0, Anion Gap 10, BUN 7, Creatinine 0.74, Estim Creat Clear Calc 113.68, Est GFR (MDRD) Af Amer 143, Est GFR (MDRD) Non-Af 118, BUN/Creatinine Ratio 9.4 L, Glucose 96, Calcium 7.6 L Current Medications Acetaminophen (Tylenol) 650 mg PO Q6H PRN PRN PRN Reason: Pain Score 1-10/Temp > 100.7 F Al Hydroxide/Mg Hydroxide (Mylanta Ii) 30 ml PO Q6H PRN PRN PRN Reason: Gastric Burning Albuterol Sulfate (Ventolin Aerosols) 2.5 mg INHALATION Q2H PRN PRN PRN Reason: SOB/Wheezing Last Admin: 07/01/19 02:07 Dose: 2.5 mg Documented by: Albuterol/Ipratropium (Duoneb) 3 ml INHALATION Q6HWA.RT JULIUS Last Admin: 07/01/19 08:05 Dose: 3 ml Documented by: Dextrose (D50w Syringe) 0 gm IV X1 PRN; Protocol PRN Reason: Hypoglycemia Enoxaparin Sodium (Lovenox) 40 mg SC DAILY [facility] Folic Acid (Folic Acid) 1 mg PO DAILY@0800 [facility] Stop: 07/03/19 08:01 Glucagon () 1 mg IM .X1 PRN PRN Reason: Hypoglycemia Lactated Ringer's () 1,000 mls @ 150 mls/hr IV .Q6H40M [facility] Last Admin: 07/01/19 05:49 Dose: 150 mls/hr Documented by: Pantoprazole Sodium 40 mg/ (Sodium Chloride) 110 mls @ 330 mls/hr IV Q12 [facility] Last Infusion: 06/30/19 22:34 Dose: Infused Documented by: Lorazepam (Ativan) 2 mg PO Q2H PRN PRN; Protocol PRN Reason: CIWA score > 8 but <15 Lorazepam (Ativan) 2 mg PO UD PRN; Protocol PRN Reason: CIWA score >/=15. Lorazepam (Ativan) 2 mg IV Q2H PRN PRN; Protocol PRN Reason: CIWA score > 8 but <15 Lorazepam (Ativan) 2 mg IV UD PRN; Protocol PRN Reason: CIWA score >/=15. Lorazepam (Ativan) 1 mg PO Q24H PRN PRN Reason: Agitation Lorazepam (Ativan) 2 mg PO Q6H [facility]; Taper Stop: 07/06/19 22:29 Last Admin: 07/01/19 03:53 Dose: 2 mg Documented by: Morphine Sulfate () 2 mg IV Q3H PRN PRN PRN Reason: Pain Score 6-10/10 Multivitamins/Minerals (Multivitamin With Minerals (Bkc)) [facility] Nicotine (Nicoderm Cq (Pbkc)) 21 mg TRANSDERM. DAILY [facility] Last Admin: 06/30/19 22:07 Dose: 21 mg Documented by: Ondansetron HCl (Zofran) 4 mg IV Q8H PRN PRN PRN Reason: NAUSEA/VOMITING Oxycodone HCl (Oxyir) 5 mg PO Q4H PRN PRN PRN Reason: Pain Score 4-5/10 Prochlorperazine Edisylate (Compazine Iv) 5 mg IV Q4H PRN PRN PRN Reason: Breakthrough Nausea/Vomiting Senna/Docusate Sodium (Senokot-S, Letty-Colace) 2 tablet PO BID PRN PRN PRN Reason: Constipation Sodium Chloride () 10 - 40 ml IV UD PRN PRN Reason: SALINE FLUSH Thiamine HCl (Vitamin B1) [facility] Stop: 07/03/19 17:01 Assessment/Plan All Active Problems Abdominal pain (Acute) Lactic acidosis (Acute) Encounter for examination required by Department of Transportation (DOT) (Acute) Acute back pain (Acute) Hypoxia (Acute) Aspiration pneumonitis (Acute) Alcohol use disorder (Acute) Nicotine dependence (Acute) 48-year-old male with abdominal pain 1. The patient had normal white count with no left shift yesterday and as well today. His creatinine was normal. CT scan was normal as well. Patient reports improvement in his pain. The patient did have an elevated lactate which has decreased with hydration to normal levels today. I do not believe the patient has any surgical indication. Judging by his story and the fact that his bladder was enlarged on his CT scan I am concerned for possible prostatitis. I recommend checking a postvoid residual. Patient may be having lower abdominal pain due to urinary retention. Patient did have a normal UA as well. 2. At this time there is no need for surgery and the patient can be discharged home from my standpoint. Kd Mijares MD Pager: [facility] [address] [place] [address], [address] [place] [address] Office:
--- NOTE | 2019-07-01 09:21 | CASEMGMT ---
SW met with patient, introduced self and role at [facility]. SW asked patient if he would like information on [facility] and [facility] for medical care. He said that would be helpful. SW asked if he would like resources to help him quit drinking. He said he is done drinking. He needs help with quitting smoking. JOLANTA told him SW can drop off some information for him after bit on [facility], [facility], and some other helpful resources for self pay. He said he would appreciate this. Libra LAGOS MSW
[2019-07-01 09:41] LABS: Hematocrit 39.8 % (40-54); Hemoglobin 13.5 g/dL (13.0-16.5)
[2019-07-01] MEDS: Enoxaparin 40 MG/0.4 ML Syringe SC (09:48)
[2019-07-01] MEDS: Thiamine Hydrochloride 100 MG Tablet PO (09:48)
[2019-07-01] MEDS: Multivitamins,Ther W-Minerals Tablet 1 TABLET PO (09:48)
[2019-07-01] MEDS: Ciprofloxacin 500 MG Tablet PO (09:48)
[2019-07-01] MEDS: Folic Acid 1 MG Tablet PO (09:48)
--- NOTE | 2019-07-01 09:56 | DCINST_ITS ---
- Discharge Diagnoses Current Active Problems: Current Active and Chronic Problems Abdominal pain (Acute) Lactic acidosis (Acute) You will use the following diet at home:: No restrictions Your food should be the consistency of: Regular Your liquids should be the consistency of: Regular/Thin Discharge Activity: Return to Normal Activity Weight Bearing Status: Full weight bearing Allergies/Adverse Reactions: Allergies Penicillins [PCN] Allergy (Verified 06/30/19 15:08) Hives Medications to take at Discharge Ciprofloxacin [Cipro] 500 mg PO BID #41 tab 07/01/19 Pantoprazole Sodium [Protonix] 40 mg PO DAILY #30 tab 07/01/19 The following prescriptions were given: Ciprofloxacin [Cipro] 500 mg PO BID #41 tab Transmission Status: Pending to [id number] Pantoprazole Sodium [Protonix] 40 mg PO DAILY #30 tab Transmission Status: Pending to [facility][id number] Primary Care Physician: Care Physician,No Primary [Primary Care Provider] - Please follow up with your Primary Care Physician in: in 3 weeks Test Results: Test results from this visit will be discussed in further detail at your follow- up appointment, if applicable.
--- NOTE | 2019-07-01 10:16 | CASEMGMT ---
RN CM updated that patient would like list of PCPs. RN GLO provided patient with list of PCPs as well as information packet from . Patient had no further questions or concerns at this time.
--- NOTE | 2019-07-01 14:08 | DS.PCM_ITS ---
Discharge Date and Diagnosis Date of Admission: 06/30/19 Date of Discharge: 07/01/19 - Primary Discharge Diagnosis #1 lower quadrant abdominal pain secondary to acute prostatitis #2 acute prostatitis #3 elevated lactic acidosis-falsely elevated-cause unknown #4 alcohol intoxication #5 hypokalemia-etiology unknown No evidence of severe sepsis or septic shock was noted to be present - Secondary Discharge Diagnosis Chronic Problems COPD exacerbation (Chronic) Hospital Course and Treatment Operations: None Procedures: None Summary of Care Provided: The patient is a 48 year old M who was seen in the emergency room at [facility] with a chief complaint of abdominal pain, he complained of periumbilical pain and upper abdominal pain, he stated that when he had a bowel movement he had a lot of pain in his rectum. Patient admitted to drinking on a regular basis, labs obtained in the emergency room showed his alcohol level be 1 92, patient's white blood cell count was normal, his lactic acid was highly elevated at 9.8, there was not an obvious source of sepsis or infection and it was felt that the elevation of the lactic acid was probably a false elevation. Patient's abdominal CT was unremarkable, urinalysis was unremarkable. Chest x- ray was normal except for signs of hyperinflation. Patient was admitted for lactic acid elevation and abdominal pain, he was placed in the ICU and seen the following day by critical care, critical care could not confirm any evidence of sepsis or infection and felt that the patient could be discharged home or transferred to a medical bed. Patient was seen in consultation by general surgery who felt that the patient possibly had prostatitis, this examiner did a rectal exam on the patient and he had severe pain during rectal examination which appeared to confirm this. Patient's hemoglobin was noted to have dropped since his admission but he had been given fluids and it was felt that the drop in the hemoglobin was due to fluid administration. On 07/01/2019, patient was seen and examined: On examination he appeared in good health and spirits. Vital signs as documented. Skin warm and dry and without overt rashes. Neck without JVD, neck was supple, trachea midline, thyroid was normal. Lungs clear bilaterally, normal air movement was noted. Heart exam notable for regular rhythm, normal sounds and absence of murmurs, rubs or gallops. Abdomen unremarkable and without evidence of organomegaly, masses, or abdominal aortic enlargement. Bowel sounds are present, abdomen is not distended. Extremities nonedematous, no cyanosis was noted, no clubbing was noted. Neuro: Cranial nerves II through XII are grossly intact, no focal motor deficits were noted, sensation to light touch and pinprick intact, motor exam 5/5 throughout. Psych: Patient is alert and oriented x3, he does not appear anxious or depressed, he does not appear agitated. On 07/01/2019, patient was discharged home in stable condition, he was placed on Protonix on a daily basis due to his initial complaints of epigastric pain, he was placed on Cipro for acute prostatitis. - Physical Exam Vitals/I&O's: Vital Signs Temp Pulse Resp BP Pulse Ox 98.9 F 103 H 17 126/81 H 96 07/01/19 08:00 07/01/19 10:00 07/01/19 10:00 07/01/19 10:00 07/01/19 10:00 Oxygen Delivery Method Room Air Weight: 69.1 kg Body Mass Index (BMI) 21.2 Intake and Output for Last 24 Hours 06/29/19 06/30/19 07/01/19 23:59 23:59 23:59 Intake Total 3240 / 4040 2775.0 / 2775.0 Output Total 1275 / 1275 Balance 3240 / 3640 1500.0 / 1500.0 Microbiology Past 72 Hours 06/30/19 16:26 Urine, Clean Catch Urine Culture - Preliminary Culture exhibits no growth. 06/30/19 21:50 Mucosa - Nasopharyngeal Respiratory Panel (PCR) - Final Laboratory Results 06/30/19 15:11: Sodium 137, Potassium 3.5, Chloride 100, Carbon Dioxide 19.0 L, Anion Gap 18 H, BUN 6 L, Creatinine 0.99, Estim Creat Clear Calc 86.99, Est GFR (MDRD) Af Amer 102, Est GFR (MDRD) Non-Af 85, BUN/Creatinine Ratio 6.0 L, Glucose 88, Calcium 9.1, Total Bilirubin 0.40, AST 34, ALT 44, Alkaline Phosphatase 75, Troponin I < 0.015, Total Protein 8.4 H, Albumin 4.3, Globulin 4.1, Albumin/Globulin Ratio 1.0, Lipase 133 06/30/19 15:11: Ethyl Alcohol 192.0 06/30/19 15:11: WBC 8.3, RBC 5.03, Hgb 15.9, Hct 46.1, MCV 91.7, MCH 31.6, MCHC 34.5, RDW Std Deviation 48.2 H, RDW Coeff of Sujata 14.4, Plt Count 188, MPV 9.6, Immature Gran % (Auto) 0.200, Neut % (Auto) 65.2, Lymph % (Auto) 24.2, [place] % (Auto) 7.4, Eos % (Auto) 1.3, Baso % (Auto) 1.7 H, Absolute Neuts (auto) 5.4, Absolute Lymphs (auto) 2.02, Nucleated RBC % 0 06/30/19 15:11: PT 11.7, INR 0.9, APTT 23.2 L 06/30/19 15:11: Lactic Acid 9.8 H* 06/30/19 15:11: Magnesium 2.0, GGT 42 06/30/19 16:26: Urine Color Straw, Urine Clarity Clear, Urine pH 8.0, Ur Specific [place] 1.015, Urine Protein Negative, Urine Glucose (UA) Normal, Urine Ketones Negative, Urine Occult Blood Negative, Urine Nitrite Negative, Urine Bilirubin Negative, Urine Urobilinogen Normal, Ur Leukocyte Esterase Negative, Urine RBC 0 SEEN, Urine WBC 0 SEEN, Ur Squamous Epith Cells 0 SEEN, Urine Bacteria 0 SEEN, Urine Mucus 0 SEEN 06/30/19 16:26: Urine Opiates Screen NEGATIVE, Urine Methadone Screen NEGATIVE, Ur Barbiturates Screen NEGATIVE, Ur Phencyclidine Scrn NEGATIVE, Ur Amphetamines Screen NEGATIVE, U Methamphetamin-MDMA NEGATIVE, U Benzodiazepines Scrn NEGATIVE, Urine Cocaine Screen NEGATIVE, U Cannabinoids Screen NEGATIVE, Ur Drug Screen Comment 06/30/19 17:57: Lactic Acid 3.5 H* 06/30/19 21:35: Lactic Acid 1.5 06/30/19 22:00: Ethyl Alcohol 5.0 07/01/19 04:00: WBC 5.7, RBC 4.02 L, Hgb 12.8 L, Hct 37.6 L, MCV 93.5, MCH 31.8, MCHC 34.0, RDW Std Deviation 50.5 H, RDW Coeff of Sujata 14.6, Plt Count 138 L, MPV 10.1, Immature Gran % (Auto) 0.400, Neut % (Auto) 54.8, Lymph % (Auto) 30.0, [place] % (Auto) 10.0, Eos % (Auto) 3.0, Baso % (Auto) 1.8 H, Absolute Neuts (auto) 3.1, Absolute Lymphs (auto) 1.71, Nucleated RBC % 0 07/01/19 04:00: Sodium 138, Potassium 3.2 L, Chloride 102, Carbon Dioxide 26.0, Anion Gap 10, BUN 7, Creatinine 0.74, Estim Creat Clear Calc 113.68, Est GFR (MDRD) Af Amer 143, Est GFR (MDRD) Non-Af 118, BUN/Creatinine Ratio 9.4 L, Glucose 96, Calcium 7.6 L 07/01/19 09:25: Hgb 13.5, Hct 39.8 L Discharge Activity: Return to Normal Activity Weight Bearing Status: Full weight bearing Home Medications: Medications to take at Discharge Ciprofloxacin [Cipro] 500 mg PO BID #41 tab 07/01/19 Pantoprazole Sodium [Protonix] 40 mg PO DAILY #30 tab 07/01/19 Following Prescrptions Were Given to Patient: Ciprofloxacin [Cipro] 500 mg PO BID #41 tab Transmission Status: Received by [facility] #[id number] Pantoprazole Sodium [Protonix] 40 mg PO DAILY #30 tab Transmission Status: Received by [facility] #[id number] Primary Care Physician: Care Physician,No Primary [Primary Care Provider] - Please follow up with your Primary Care Physician in: in 3 weeks Disposition: Home Minutes spent on discharge:: 30 Patient Condition:: Stable Medical Necessity - Tobacco Use Smoking Status: Current every day smoker Meaningful Use Info Meaningful Use Diagnoses (Choose all that apply): None applicable OBSV E&M: 26312 Observation care discharge
== END 2019-07-01 11:40 | disposition home or self-care (01) ==
LOC: ED 15:52 → ICU 21:36
PROVIDERS: Admitting Provider Internal Medicine; Emergency Provider Emergency Medicine; Referring Provider Internal Medicine; Visit Provider Internal Medicine
DX: N41.0 Acute prostatitis (principal); E87.2 Acidosis; Y90.6 Blood alcohol level of 120-199 mg/100 ml; J44.9 Chronic obstructive pulmonary disease, unspecified; F17.210 Nicotine dependence, cigarettes, uncomplicated; F10.229 Alcohol dependence with intoxication, unspecified; E87.6 Hypokalemia
CPT/HCPCS: 71045; 74177; 80048; 80053; 80307; 80320; 81001; 82977; 83605; 83690; 83735; 84484; 85014; 85018; 85025; 85610; 85730; 87040; 87086; 87088; 87633; 93005; 94640; 94667; 94668; 96361; 96365; 96366; 96372; 96375; 99218; 99251; 99285; J7030; J7120; Q9967; A4216; G0378; G0463; G0480; J2405

== ENCOUNTER 2021-01-02 15:14 | Emergency (ER) | payer SELFPAY ==
[2021-01-02 15:15] VITALS: BP 206/145; PULSE 87; RESP 20; TEMP 37.6; O2SAT 98; BMI 20.9
--- NOTE | 2021-01-02 15:18 | RAD_ITS ---
HISTORY: SOB EXAMINATION/TECHNIQUE: XR Chest 1 View: 1 view COMPARISON: The FINDINGS: LINES/DEVICES: None. LUNGS: No consolidation, edema or effusion. No pneumothorax. MEDIASTINUM AND CARDIOVASCULAR STRUCTURES: Cardiac silhouette not enlarged. Central airways and mediastinal contour are unremarkable. BONES AND SOFT TISSUES: No acute bony abnormalities. RAD/Chest 1 View IMPRESSION: No radiographic evidence of acute cardiopulmonary disease. at 1603 Reported and signed by: Graeme Gastelum MD Electronically Signed: Graeme Gastelum MD at 16:01 EDT Tel , Service support ,
[2021-01-02 15:32] VITALS: BP 206/145; PULSE 87; RESP 20; TEMP 37.6; O2SAT 98
[2021-01-02] MEDS: Acetaminophen 500 MG Tablet 1000 MG PO (15:33)
[2021-01-02] MEDS: Ondansetron ODT 4 MG Tablet PO (15:33)
[2021-01-02 15:56] LABS: Absolute Lymphocyte Count 0.54 X10^3/uL (0.83-4.51); Absolute Neutrophil Count 6.4 X10^3/uL (2.0-7.7); Basophil# 0.06 X10^3/uL; Basophil% 0.8 % (0-1); Hemoglobin 17.2 g/dL (13.0-16.5); Lymphocyte # 0.54 X10^3/ul (0.83-4.51); Lymphocyte % 7.3 % (19-41); Mean Corp Hgb Conc 34.4 g/dL (32-36); Mean Corpuscular Volume 90.1 fL (80-94); Monocyte# 0.34 X10^3/uL; Monocyte% 4.6 % (0-10); NRBC Flagged by Analyzer 0 % (0-5); Neutrophil # 6.43 X10^3/uL (2.7-7.7); Neutrophil % 87.2 % (47-70); POSITIVE DIFFERENTIAL YES; Platelet Count 222 K/mm3 (150-450); RBC Distribution Width CV 14.4 % (11.6-14.6); RBC Distribution Width SD 47.4 fl (35.1-43.9); Red Blood Count 5.55 M/mm3 (4.6-6.2); White Blood Count 7.4 K/mm3 (4.4-11.0)
[2021-01-02 16:10] LABS: Anion Gap 15 (5-15); BUN 9 mg/dL (7-18); BUN/Creat Ratio 7.6 RATIO (10-20); Calcium,Total 10.1 mg/dL (8.5-10.1); Chloride 90 mmol/L (98-107); Creatinine, Serum 1.18 mg/dL (0.70-1.30); EST Glomerular Filtration Rate 69 mL/min (>60); Est Glom Filt Rate - Afr Amer 83 mL/min (>60); Estimated Creatinine Clearance 72.82 ml/min; Glucose 181 mg/dL (74-106); Potassium 4.3 mmol/L (3.5-5.1); Sodium Level 134 mmol/L (136-145)
[2021-01-02 16:39] LABS: Differential Indicated SCAN CRITERIA MET
--- NOTE | 2021-01-02 17:03 | EX.ED.DYSGE1 ---
HPI History of Present Illness Chief Complaint: Dizziness Informant: patient Onset/Context/Timing Onset: Yesterday Context: Gradual Onset Timing: Continuous Quality: Spinning Location: Head Worsened by: Standing, head movement Relieved by: Nothing Narrative Narrative: Patient presents with dizziness, nausea, and vomiting that began last night. Patient states his dizziness feels like a spinning sensation. Patient states it is worse with patient states he has been unable to keep anything down because of the nausea and vomiting. Patient does admit to a mild headache. Patient also admits to some pain in his neck and back. Patient admits to some pain in his chest from the vomiting. Patient also admits to subjective fevers and chills. Patient states his has COVID-19 and he is concerned that he may have it as well. [facility] Medical History (Updated 01/02/21 @ 18:[address] Burton Garcia DO) COPD (chronic obstructive pulmonary disease) Allergy/AdvReac Type Severity Reaction Status Date / Time Penicillins [PCN] Allergy Hives Verified 06/30/19 15:08 Social History Smoking Status: Current every day smoker tobacco type: cigarettes ROS ROS ED Constitutional Constitutional ED: Reports chills, fever(s), subjective and sweats Eyes Eyes: Denies blurry vision or change in vision ENT ENT ED: Reports rhinorrhea; Denies sore throat Cardiovascular Cardiovascular: Reports chest pain; Denies palpitations Respiratory/Chest Respiratory/Chest: Denies cough or dyspnea Gastrointestinal Gastrointestinal: Reports nausea and vomiting Genitourinary Genitourinary ED: Reports dysuria; Denies hematuria Musculoskeletal Musculoskeletal: Reports back pain and neck pain Integumentary Denies abscess or rash Neurologic Neurologic: Reports headache(s); Denies weakness Allergic/Immunologic Allergic/Immunologic ED: Denies mouth swelling or urticaria EXAM Physical Exam Const Vital Signs: 01/02/21 15:15 01/02/21 15:32 01/02/21 17:15 Temperature 99.6 F H 99.6 F H Temperature Source Temporal Temporal Pulse Rate 87 87 Respiratory Rate 20 H 20 H Respiratory Effort Normal Non-Labored Respiratory Pattern Normal Blood Pressure 206/145 H 206/145 H Blood Pressure Mean 165 165 Pulse Ox 98 98 Oxygen Delivery Method Room Air Room Air 01/02/21 19:38 Temperature Temperature Source Pulse Rate 66 Respiratory Rate Respiratory Effort Respiratory Pattern Blood Pressure 130/79 H Blood Pressure Mean Pulse Ox 93 Oxygen Delivery Method Positive well nourished and well developed General Appearance ED: well developed HEENT Reports moist mucous membranes Eyes PERRL and EOMs intact bilaterally Eyes Narrative: There is nystagmus with right lateral gaze. Neck supple and no JVD Resp normal respiratory effort and clear to auscultation bilaterally Cardio regular rate, regular rhythm and no murmurs GI normal to inspection, nondistended, normoactive bowel sounds Palpation: soft and tender other (There is mild diffuse tenderness.); Negative for guarding or rebound tenderness present Extremity normal to inspection General Extremety ED: Negative for edema or tenderness General Extremity: Negative for edema Neuro oriented x3, CN's II-XII intact bilaterally and no sensory deficits noted Sensorium / Orientation: alert Motor Exam: strength 5/5 throughout Psych mental status grossly normal Skin no rashes or lesions noted MDM MDM MDM Narrative Medical decision making narrative: Patient was given a dose of Zofran and Valium here. Patient given IV fluids. Portable 1 view chest x-ray was obtained. On my interpretation, lung ojeda are clear. There is normal cardiac silhouette. Bony thorax is normal. There is no acute process noted. Radiologist also interpreted the x-ray and agrees. CBC and basic metabolic profile were within normal limits. Patient is feeling better on reevaluation. Patient's blood pressure improved to 130/79. Patient was instructed to follow-up with his primary care physician in 5 to 7 days. Patient was given a prescription for Valium. Patient understood and was agreeable with the plan. All questions were answered. Lab Data Attestation: I reviewed the patient's lab results. Labs: Laboratory Results - last 24 hr 01/02/21 01/02/21 15:26 15:26 WBC 7.4 RBC 5.55 Hgb 17.2 H Hct 50.0 MCV 90.1 MCH 31.0 MCHC 34.4 RDW Std Deviation 47.4 H RDW Coeff of Sujata 14.4 Plt Count 222 MPV 10.0 Immature Gran % (Auto) 0.100 Neut % (Auto) 87.2 H Lymph % (Auto) 7.3 L [place] % (Auto) 4.6 Eos % (Auto) 0.0 Baso % (Auto) 0.8 Absolute Neuts (auto) 6.4 Absolute Lymphs (auto) 0.54 L Nucleated RBC % 0 Differential Comment SCANNED Sodium 134 L Potassium 4.3 Chloride 90 L Carbon Dioxide 29.0 Anion Gap 15 BUN 9 Creatinine 1.18 Estim Creat Clear Calc 72.82 Est GFR (MDRD) Af Amer 83 Est GFR (MDRD) Non-Af 69 BUN/Creatinine Ratio 7.6 L Glucose 181 H Calcium 10.1 Radiography Chest X-Ray - ED: 1 View, Read by ED Physician, Read by Radiologist and Normal Diagnostic Testing: Radiology Impression Chest X-Ray 01/02/21 15:18 IMPRESSION: No radiographic evidence of acute cardiopulmonary disease. at 1603 Reported and signed by: Graeme Gastelum MD Electronically Signed: Graeme Gastelum MD at 16:01 EDT Tel , Service support , Discharge Plan Triage Chief Complaint: Dizziness ED Provider: Burton Garcia Dx/Rx/DC Orders Clinical Impression: Vertigo, Hypertension Instructions: ED High Blood Pressure Hypertension, ED Vertigo, Unspecified Primary Care Provider: Care Physician,No Primary Referrals: Amber Mccormick [NON-STAFF] - 2 Days Care Physician,No Primary [Primary Care Provider] - Disposition Disposition: Home, Self Care Discharge Date/Time: 01/02/21 19:43
[2021-01-02] MEDS: diazePAM 5 MG Tablet 2.5 MG PO (17:10)
[2021-01-02] MEDS: Ondansetron 4 MG/2 ML Vial IV (17:10)
[2021-01-02] MEDS: 0.9% Normal Saline 1,000 ML 1000 ML IV (17:11)
[2021-01-02 17:19] LABS: Differential Comment SCANNED
[2021-01-02 19:38] VITALS: BP 130/79; PULSE 66; O2SAT 93
== END 2021-01-02 19:43 | disposition home or self-care (01) ==
PROVIDERS: Emergency Provider Emergency Medicine
DX: R42 Dizziness and giddiness (principal); I10 Essential (primary) hypertension; F17.210 Nicotine dependence, cigarettes, uncomplicated
CPT/HCPCS: 71045; 80048; 85025; 87426; 96361; 96374; 99283; J7030; A4216; J2405

== ENCOUNTER 2023-08-10 10:36 | Emergency (ER) | payer BC, SELFPAY ==
[2023-08-10 10:36] VITALS: BP 133/87; PULSE 101; RESP 18; TEMP 36.1; O2SAT 97; BMI 21.1
--- NOTE | 2023-08-10 11:06 | EX.ED.UPPERE ---
HPI History of Present Illness Chief Complaint: Upper Extremity Injury Detail of Chief Complaint: Left shoulder region shoulder pain Informant: patient Occured/Mechanism Comment: Patient states he was throwing tires 2 days ago. Last night he was unable to sleep because of the pain. Pain started yesterday evening. He drink a sixpack and hope that the pain would go away. Onset/Context/Timing Onset: Yesterday Context: Sudden Onset Timing: Continuous Quality of Pain: Dull and Aching Location: Left shoulder region Current Severity: Mild Maximum Severity: Severe Worsened by: Palpation and movement Relieved by: Nothing Associated Symptoms Associated Symptoms: Negative for Parasthesia, Weakness or Loss of Funtion (Limited range of motion due to pain) Narrative Narrative: Patient is a 52-year-old male. Patient has history of COPD, alcohol disorder, nicotine dependency who presents with left shoulder pain. There is no history of direct trauma. He denies history of gout or pseudogout. He is not on a thiazide diuretic. He denies fever, chills night sweats. He denies paresthesia, anesthesia motors. He denies cardiac or respiratory symptoms. Prior similar symptoms: No Recent Illness/Hospitalization: No [facility] Medical History COPD (chronic obstructive pulmonary disease) Home Medications naproxen 500 mg tablet 500 mg PO BID #14 tabs 08/10/23 [Rx Last Taken Unknown] Allergy/AdvReac Type Severity Reaction Status Date / Time Penicillins [PCN] Allergy Hives Verified 06/30/19 15:08 Social History (Updated 08/10/23 @ 11:[address] Zac Harvey MD) Smoking Status: Current every day smoker tobacco type: cigarettes alcohol intake: current alcohol intake frequency: 3 or more drinks per day ROS ROS ED Constitutional Constitutional ED: Denies chills, fever(s), subjective, sweats or weight loss ENT ENT ED: Denies rhinorrhea or sore throat Cardiovascular Cardiovascular: Denies chest pain or palpitations Respiratory/Chest Respiratory/Chest: Denies cough, dyspnea or dyspnea on exertion Musculoskeletal Musculoskeletal: Reports other Details: Left shoulder pain ; Denies back pain, myalgias or neck pain Integumentary Denies Abrasions or rash Neurologic Neurologic: Denies paresthesias or weakness Hematologic/Lymphatic Hematologic/Lymphatic: Denies easy bleeding or easy bruising EXAM Physical Exam Const Vital Signs: 08/10/23 10:36 Temperature 97 F L Temperature Source Temporal Pulse Rate 101 H Respiratory Rate 18 Blood Pressure 133/87 H Blood Pressure Mean 102 Pulse Ox 97 Oxygen Delivery Method Room Air Positive well nourished and well developed General Appearance ED: well developed and NAD; Negative for cyanotic or diaphoretic HEENT Reports moist mucous membranes normocephalic and atraumatic Eyes PERRL and EOMs intact bilaterally Neck full ROM and supple Neck Narrative: There is no cervical lymphadenopathy. Chest Wall inspection of chest normal and palpation of chest normal Resp normal respiratory effort and clear to auscultation bilaterally Cardio regular rate, regular rhythm, S1 normal heart sound, S2 normal heart sound and no murmurs Back/Spine Cervical Spine: Negative for cervical spine tenderness Thoracic Spine / Upper Back: Negative for thoracic spinal tenderness Extremity normal to inspection; Negative for full ROM Extremity Narrative: There is pain the patient with AC joint, proximal humerus. There is no effusion note left shoulder joint. Axillary, median, radial ulnar function intact. There is no pain the patient over the lateral medial epicondyle, lateral process or radial head. There is no pain ovation of the distal radius or ulna. Radial pulses 2+ and symmetric. Neuro oriented x3, CN's II-XII intact bilaterally, moves all extremities, no focal motor deficits and no sensory deficits noted Sensorium / Orientation: alert Psych mental status grossly normal Skin General Skin Exam: Negative for petechiae Lesions: no lesions Rashes: no rashes Trauma: no lacerations or abrasions MDM MDM MDM Narrative Medical decision making narrative: Suspect patient has muscular pain. Do not believe this to be crystal induced or pyogenic arthritis. Because patient has significant pain will obtain x-ray to evaluate for pathologic fracture. Patient was medicated with NSAIDs. Radiography Chest X-Ray - ED: 2 View and Read by ED Physician (2 view x-rays shoulder reveals no evidence of any significant arthritis or effusion. There is no fracture, subluxation or dislocation noted. This independent reviewed interpreted by me at 04/07/2005) Treatment and Re-Evaluation Narrative: Patient was informed of his results. He was discharged to home with prescription for NSAID. Discharge Plan Triage Chief Complaint: Upper Extremity Injury ED Provider: Zac Harvey Dx/Rx/DC Orders Clinical Impression: Muscle strain of left shoulder region, Acute pain of left shoulder Instructions: ED Muscle Strain, Extremity, ED RICE Prescriptions: New naproxen 500 mg tablet 500 mg PO BID Qty: 14 0RF Primary Care Provider: Care Physician,No Primary Referrals: Care Physician,No Primary [Primary Care Provider] - Disposition Disposition: Home, Self Care
[2023-08-10] MEDS: Naproxen 500 MG Tablet PO (11:36)
--- NOTE | 2023-08-10 11:40 | RAD_ITS ---
STUDY: X-RAY - LEFT SHOULDER REASON FOR EXAM: Male, 52 years old. Injury/Pain. TECHNIQUE: 2 views of the left shoulder. COMPARISON: None. FINDINGS: Normal glenohumeral articulation. Normal acromioclavicular joint. Normal acromion. Normal humeral head and visualized proximal humerus. The soft tissue structures are unremarkable. There is no demonstrated fracture. Normal visualized pulmonary apex. RAD/Shoulder min 2 Views IMPRESSION: Normal x-ray examination of the left shoulder. Electronically Signed: Leo More MD at 12:07 EDT ,
[2023-08-10 12:36] VITALS: BP 130/87; PULSE 91; RESP 16; TEMP 36.9; O2SAT 99
== END 2023-08-10 12:36 | disposition home or self-care (01) ==
PROVIDERS: Emergency Provider Emergency Medicine; Visit Provider Emergency Medicine
DX: S46.912A Strain of unspecified muscle, fascia and tendon at shoulder and upper arm level, left arm, initial encounter (principal); X50.3XXA Overexertion from repetitive movements, initial encounter; Y93.89 Activity, other specified; F17.210 Nicotine dependence, cigarettes, uncomplicated
CPT/HCPCS: 73030; 99282

== ENCOUNTER 2023-11-09 17:52 | Emergency (ER) | payer SELFPAY ==
[2023-11-09 17:53] VITALS: BP 137/118; PULSE 86; RESP 16; TEMP 36.9; O2SAT 98; BMI 23.3
--- NOTE | 2023-11-09 18:00 | RAD_ITS ---
INDICATION: Injury/Pain -- To determine depth of foreign body EXAMINATION/TECHNIQUE: X-RAY - LEFT XR Knee 1 or 2 Views 2 VIEWS COMPARISON: None FINDINGS: SOFT TISSUES: Linear object containing multiple nails extend along the inferior anteromedial knee, remaining within soft tissues when comparing 2 views. Mild medial knee edema. No subcutaneous emphysema. No radiopaque foreign body. BONES/JOINTS: No acute fracture. No effusion .. Normal alignment. Preservation of the joint space.. No sclerotic or destructive changes observed. RAD/Knee 1 or 2 Views IMPRESSION: Multiple metallic screws and nails extend from a board, projecting within the soft tissues of the anteromedial knee. It is difficult to assess whether there is violation of the inferior most knee joint. No joint effusion is seen. CT could further evaluate as clinically indicated No acute osseous finding Electronically Signed: Thang Ratliff MD at 18:36 EDT ,
--- NOTE | 2023-11-09 18:11 | EDS_ITS ---
HPI History of Present Illness Chief Complaint: Foreign Body Detail of Chief Complaint: Metallic foreign body Informant: patient Onset/Context/Timing Onset: - (Prior to arrival) Context: Sudden Onset Timing: Continuous Quality: Pain Location: Inferior left patella Current Severity: Mild Maximum Severity: Severe Worsened by: Touch Relieved by: Nothing Associated Symptoms Associated Symptoms: None Narrative Narrative: Patient is a 53-year-old male. He presents because of kneeling on a carpet strip with nail/screw sticking up through it. He presents with screw into his skin below the left patella. Squad thought it was in his bone. Prior similar symptoms: No Recent Illness/Hospitalization: No PFSH PFSH Medical History COPD (chronic obstructive pulmonary disease) Home Medications ?Medication ?Instructions ?Recorded ?Last Taken ?Type naproxen 500 mg tablet 500 mg PO BID #14 tabs 08/10/23 Unknown Rx Allergy/AdvReac Type Severity Reaction Status Date / Time Penicillins (PCN) Allergy Hives Verified 06/30/19 15:08 Social History Smoking Status: Current every day smoker tobacco type: cigarettes alcohol intake: current alcohol intake frequency: 3 or more drinks per day ROS [facility] ED Musculoskeletal Musculoskeletal: Denies arthralgias or myalgias Integumentary Reports other Details: Foreign body left knee ; Denies Abrasions or rash Hematologic/Lymphatic Hematologic/Lymphatic: Denies easy bleeding or easy bruising EXAM Physical Exam Const Vital Signs: 11/09/23 17:53 Temperature 98.4 F Temperature Source Oral Pulse Rate 86 Respiratory Rate 16 Blood Pressure 137/118 H Blood Pressure Mean 124 Pulse Ox 98 Oxygen Delivery Method Room Air Positive well nourished and well developed General Appearance ED: well developed and NAD HEENT Reports moist mucous membranes HEENT Narrative: Head is atraumatic normocephalic. Eyes PERRL and EOMs intact bilaterally Resp normal respiratory effort Cardio regular rate and regular rhythm Extremity Negative for normal to inspection Extremity Narrative: There is a screw noted inferior and medial to the left knee. Neuro oriented x3 and CN's II-XII intact bilaterally Sensorium / Orientation: alert Psych Mood & Affect: anxious MDM MDM MDM Narrative Medical decision making narrative: Foreign body previously described because the paramedics thought he was in his bone and x-ray was obtained. The x-ray indicates clearly that it is not in the joint or near the tibia or patella. With gentle traction it was easily removed. Took seconds to remove. Patient screamed. Nurse was instructed to clean the wound and he will be discharged to home. Treatment and Re-Evaluation :: Removal foreign body subcutaneous tissue left knee Discharge Plan Triage Chief Complaint: Foreign Body ED Provider: Zac Harvey Dx/Rx/DC Orders Clinical Impression: Acute foreign body of left lower leg, Alcohol use disorder, History of COPD Instructions: ED Foreign Body Soft Tissue Prescriptions: No Action naproxen 500 mg tablet 500 mg PO BID Qty: 14 0RF Primary Care Provider: Care Physician,No Primary Referrals: Care Physician,No Primary [Primary Care Provider] - Doctor,Your [Non-Staff] - As Needed Print Language: Citizen Of [place] Disposition Disposition: Home, Self Care
[2023-11-09 18:23] VITALS: BP 128/84; PULSE 84; RESP 19; TEMP 36.4; O2SAT 100
== END 2023-11-09 18:37 | disposition home or self-care (01) ==
LOC: ED 18:36
PROVIDERS: Emergency Provider Emergency Medicine; Visit Provider Emergency Medicine
DX: S81.002A Unspecified open wound, left knee, initial encounter (principal); J44.9 Chronic obstructive pulmonary disease, unspecified; W45.8XXA Other foreign body or object entering through skin, initial encounter; F10.90 Alcohol use, unspecified, uncomplicated; F17.210 Nicotine dependence, cigarettes, uncomplicated; Z18.10 Retained metal fragments, unspecified
CPT/HCPCS: 73560; 99282